=== PATIENT | female | born 1960 | race Caucasian/White ===

== ENCOUNTER 2016-08-27 04:57 | Day surgery (SDC) | payer BC ==
[2016-08-27 06:22] VITALS: BP 117/67
--- NOTE | 2016-08-27 11:22 | OR ---
DATE: 08/27/2016 PROCEDURE: Flexible sigmoidoscopy and multiple pinch biopsies. INSTRUMENT USED: CF-H180AL Olympus video colonoscope. PREMEDICATIONS: None. INDICATIONS: The patient with known ulcerative colitis on therapy with more of diarrhea, lower abdominal cramps, tenesmus, and rectal bleeding. Flexible sigmoidoscopic examination is done for assessment of severity and extent of ulcerative colitis and also biopsies to be obtained for CMV infection and endoscopic hemostasis therapy if needed. DESCRIPTION OF PROCEDURE: Initial rectal exam was unremarkable. Rigid anoscopy showed diffuse erythematous distal rectal mucosa with ulcerations and contact bleeding. The colonoscope was passed with ease. Photographs were taken of the rectum as well as sigmoid showing macroscopic features of ulcerative colitis. The scope was passed up to proximal sigmoid colon. No stricture. No vascular ectasia. No large isolated ulcerations seen. No polyp or tumor mass identified. Photographs were taken of the rectosigmoid area and numerous pinch biopsies were obtained and sent for histopathology. No bleeding was noted from any of the visualized areas at the completion of examination. IMPRESSION: Ulcerative colitis. The patient tolerated the procedure well. [facility] /[id number]
== END 2016-08-27 06:35 | disposition home or self-care (01) ==
LOC: DL.ENDO 04:57
PROVIDERS: ATTEND Internal Medicine Gastroenterology
DX: K52.9 Noninfective gastroenteritis and colitis, unspecified (principal); E66.9 Obesity, unspecified; E03.9 Hypothyroidism, unspecified
CPT/HCPCS: 88305

== ENCOUNTER 2019-06-29 06:32 | Day surgery (SDC) | payer BC ==
[~2019-06-29 06:32] MED LIST: Dextrose 5%-0.45% NaCl 1,000 ML IV SCH; Sodium Chloride 0.9% 10 ML Syringe FLUSH PRN
[2019-06-29] MEDS ORDERED: Propofol 1,000 MG/100 ML SDV IV ONE (06:33)
[2019-06-29] MEDS ORDERED: Lidocaine 1% 50 MG/5 ML Syringe ONE ×2 (06:33→06:40)
[2019-06-29] MEDS ORDERED: Sodium Chloride 0.9% 10 ML Syringe IV ONE (06:33)
[2019-06-29] MEDS ORDERED: propofoL 100 ML ONE (06:40)
[2019-06-29 12:07] VITALS: BP 113/75; PULSE 75
--- NOTE | 2019-06-29 16:01 | OR ---
DATE: 06/29/2019 PROCEDURES: Total colonoscopy and multiple pinch biopsies. INSTRUMENT USED: PCF-H190DL Olympus video colonoscope. PREMEDICATIONS: Provided by Anesthesiology Services. INDICATION: The patient with known ulcerative colitis, on therapy. Has had recent episodes of rectal bleeding as well as diarrhea. Colonoscopic examination is done for detection of any polypoid lesions and removal, evidence for mucosal healing to be determined, endoscopic hemostasis therapy if needed. DESCRIPTION OF PROCEDURE: Initial rectal exam was unremarkable. Rigid anoscopy showed small internal hemorrhoids without bleeding from them. Colonoscope was passed with ease. Numerous scattered diverticula were noted in the distal left colon along with deformity. The scope was passed with ease up to the ileocecal area. Photographs were taken of the normal-appearing cecum, identified by landmarks of appendiceal orifice and double-bulged ileocecal folds. No bleeding was noted from any of the visualized areas at the commencement of the examination. No stricture. No vascular ectasia. No large isolated ulcerations seen. No evidence of diffuse inflammatory bowel disease in the form of friability, contact bleeding, or ulcerations. No polyp or tumor mass identified. Probing the proximal sides of folds and flexures using adequate distention and clearing up the stool material, withdrawal of the scope was made. The bowel preparation was found to be adequate, [place] scale 2 in all the regions, total score 6. Multiple pinch biopsies were taken from the normal- appearing mucosa of the mid transverse colon, mid descending colon, and rectosigmoid, and sent for any histopathologic evidence of microscopic colitis. No bleeding was noted from any of the visualized areas at the completion of examination. IMPRESSION: 1. Internal hemorrhoids. 2. Diverticulosis. The patient tolerated the procedure well. [facility] /[id number]
== END 2019-06-29 10:35 | disposition home or self-care (01) ==
LOC: DL.ENDO 06:32
PROVIDERS: ATTEND Internal Medicine Gastroenterology
DX: K64.8 Other hemorrhoids (principal); K57.30 Diverticulosis of large intestine without perforation or abscess without bleeding; K51.90 Ulcerative colitis, unspecified, without complications; E03.9 Hypothyroidism, unspecified; E66.09 Other obesity due to excess calories; F41.9 Anxiety disorder, unspecified; F43.9 Reaction to severe stress, unspecified; Z68.41 Body mass index [BMI] 40.0-44.9, adult; Z88.8 Allergy status to other drugs, medicaments and biological substances
CPT/HCPCS: 45380; J2001; J2704; J7042

== ENCOUNTER 2019-11-27 05:27 | Day surgery (SDC) | payer BC ==
[2019-11-27 06:03] VITALS: BP 123/76; PULSE 98
--- NOTE | 2019-11-27 07:54 | OR ---
DATE: 11/27/2019 PROCEDURES: Flexible sigmoidoscopy and multiple pinch biopsies. INSTRUMENT USED: CF-CE331P Olympus video colonoscope. PREMEDICATIONS: None. INDICATION: The patient with known ulcerative colitis on therapy with more of rectal bleeding and diarrhea recently, not responsive to medical measures. Flexible sigmoidoscopic examination is done for detection of any polypoid lesions and removal, assessment as to status of ulcerative colitis, biopsies for any evidence of microscopic colitis, endoscopic hemostasis therapy if needed. DESCRIPTION OF PROCEDURE: Initial rectal exam was unremarkable. Rigid anoscopy showed rectal mucosa with diffuse erythema as well as some friability and contact bleeding. The colonoscope was passed with ease up to proximal sigmoid colon. Visualized rectosigmoid areas showed friable mucosa with contact bleeding as well as superficial ulcerations. No bleeding was noted from any of the visualized areas at the commencement of the examination. No stricture. No vascular ectasia. No large isolated ulcerations seen. No polyp or tumor mass identified. Multiple pinch biopsies were obtained from the sigmoid colon and rectum and sent for histopathology. No bleeding was noted from any of the visualized areas at the completion of examination. IMPRESSION: Ulcerative colitis. The patient tolerated the procedure well. [facility] /[id number]
== END 2019-11-27 06:55 | disposition home or self-care (01) ==
LOC: DL.SDS 05:27
PROVIDERS: ATTEND Internal Medicine Gastroenterology
DX: K51.90 Ulcerative colitis, unspecified, without complications (principal)

== ENCOUNTER 2020-01-11 11:35 | Inpatient (IN) | payer BC ==
[2020-01-11] MEDS ORDERED: Ondansetron 4 MG/2 ML SDV IVPUSH PRN (12:39)
[2020-01-11] MEDS ORDERED: Zolpidem 5 MG Tab PO PRN (12:39)
[2020-01-11 13:56] LABS: ANION GAP 13.9 mEq/L (7-13); CHLORIDE,CL 101 mmol/L (98-107); SODIUM,NA 138 mmol/L (136-145)
[2020-01-11] MEDS ORDERED: LORazepam 1 MG Tab PO PRN (15:08)
--- NOTE | 2020-01-11 15:14 | PCM.HP ---
H&P History of Present Illness - General Date of Service: 01/11/20 Admit Problem/Dx: Admission Diagnosis/Problem Admission Diagnosis/Problem Pneumonia Source of Information: Patient, Provider - History of Present Illness Initial Comments - Free Text/Narative: the patient is a 59-year-old lady with a history of ulcerative colitis, the patient is immunosuppressed due to active treatment of ulcerative colitis. The patient's daughter had upper respiratory tract infection symptoms and was diagnosed with Lopeno it. Week later the patient's and herself developed cough, fever, body ache, shortness of breath. She tested positive for the for Covid on 01 January. the patient's symptoms of fever, body ache actually improved.The other hand in the past few days prior to admission the patient was feeling increasingly short of breath. especially with activity. she checked her oxygen saturations and it was in the high 70s at home. she went to the primary care physician and was referred to the hospital for further evolution treatment. - Related Data Allergies/Adverse Reactions: Allergies Allergy/AdvReac Type Severity Reaction Status Date / Time azathioprine Allergy Liver Verified 11/27/19 05:54 Problems Home Medications: Home Meds Acetaminophen [Tylenol Extra Strength] 1 tab PO Q6HR PRN 03/24/15 [History] Levothyroxine 25 mcg PO ACBREAKFAST 03/24/15 [History] Calcium Carbonate/Vitamin D3 [Calcium 600 + Vit D Tablet] 1 tab PO BID 06/26/19 [History] Multivitamin [Multivitamins] 1 tab PO DAILY 06/26/19 [History] Tofacitinib Citrate [Xeljanz Xr] 11 mg PO DAILY 06/26/19 [History] Turmeric Root Extract [Turmeric] 1,500 mg PO BID 06/26/19 [History] LORazepam [Ativan] 1 mg PO BEDTIME PRN 01/11/20 [History] predniSONE [Prednisone] 25 mg PO DAILY 01/11/20 [History] Past Medical History HEENT History: Reports: Sinusitis, Other (See Below) Other HEENT History: SINUSITIS, CHRONIC. REFRACTIVE ERROR Cardiovascular History: Reports: None Respiratory History: Reports: None Gastrointestinal History: Reports: Chronic Diarrhea, Inflammatory Bowel Disease, Irritable Bowel Syndrome, Other (See Below) Other Gastrointestinal History: ULCERATIVE COLITIS Genitourinary History: Reports: None, Other (See Below) Other Genitourinary History: HX OF MENOMETRORRHAGIA, RENAL MASS [employer] TRAPPER History: Reports: Endometrial Ablation, Musculoskeletal History: Reports: Other (See Below) Other Musculoskeletal History: MEDIAL MENISCUS TEAR Neurological History: Reports: None Psychiatric History: Reports: None Endocrine/Metabolic History: Reports: Hypothyroidism, Obesity/BMI 30+ Hematologic History: Reports: None Immunologic History: Reports: None Oncologic (Cancer) History: Reports: None Dermatologic History: Reports: None - Infectious Disease History Infectious Disease History: Reports: Chicken Pox - Past Surgical History Head Surgeries/Procedures: Reports: None HEENT Surgical History: Reports: Naso-Sinus Surgery Cardiovascular Surgical History: Reports: None Respiratory Surgical History: Reports: None GI Surgical History: Reports: Cholecystectomy, Colonoscopy Female Surgical History: Reports: Breast Biopsy, Section, D&C, Endometrial Ablation, Hysterectomy, Salpingo-Oophorectomy Neurological Surgical History: Reports: None Musculoskeletal Surgical History: Reports: Knee Replacement, Other (See Below) Other Musculoskeletal Surgeries/Procedures:: bilateral partial knee replacement Dermatological Surgical History: Reports: None Social & Family History - Family History Family Medical History: Noncontributory - Tobacco Use Tobacco Use Status *Q: Never Tobacco User Second Hand Smoke Exposure: No - Caffeine Use Caffeine Use: Reports: None - Recreational Drug Use Recreational Drug Use: No H&P Review of Systems - Review of Systems: Review Of Systems: See Below General: Reports: Fever, Chills, Malaise Pulmonary: Reports: Shortness of Breath. Denies: Hemoptysis Cardiovascular: Denies: Chest Pain, Edema Gastrointestinal: Reports: Diarrhea Genitourinary: Denies: Dysuria Psychiatric: Denies: Confusion Exam - Exam Exam: See Below - Vital Signs Vital Signs: Last Vital Signs Temp 98.6 F 01/11/20 12:53 Pulse 98 01/11/20 12:53 Resp 18 01/11/20 12:53 BP 109/69 01/11/20 12:53 Pulse Ox 92 L 01/11/20 12:53 Weight: 220 lb - Exam Quality Assessment: Supplemental Oxygen General: Alert, Oriented Neck: Supple Lungs: Normal Respiratory Effort, Decreased Breath Sounds, Rhonchi Cardiovascular: Regular Rate, Regular Rhythm GI/Abdominal Exam: Normal Bowel Sounds, Soft, Non-Tender Extremities: No Pedal Edema - Patient Data Lab Results Last 24 hrs: Laboratory Results - last 24 hr 01/11/20 01/11/20 01/11/20 Range/Units 13:23 13:23 13:23 WBC 6.5 (5.0-10.0) 10^3/uL RBC 4.41 (4.2-5.4) 10^6/uL Hgb 12.9 D (12.0-16.0) g/dL Hct 39.9 (37.0-47.0) % MCV 90.5 D (80-100) fL MCH 29.3 (27.0-34.0) pg MCHC 32.3 L (33.0-35.0) g/dL Plt Count 248 D (150-450) 10^3/uL Neut % (Auto) 87.8 H (42.2-75.2) % Lymph % (Auto) 9.0 L (20.5-50.1) % [place] % (Auto) 3.2 (2-8) % Eos % (Auto) 0.0 L (1.0-3.0) % Baso % (Auto) 0.0 (0.0-1.0) % PT (9.0-12.0) SEC INR (0.9-1.2) D-Dimer, Quantitative 262 (0-400) ng/mL Sodium (136-145) mmol/L Potassium (3.5-5.1) mmol/L Chloride (98-107) mmol/L Carbon Dioxide (21-32) mmol/L Anion Gap (7-13) mEq/L BUN (7-18) mg/dL Creatinine (0.55-1.02) mg/dL Est Cr Clr Drug Dosing mL/min Estimated GFR (MDRD) Glucose (74-99) mg/dL Lactic Acid (0.4-2.0) mmol/L Calcium (8.5-10.1) mg/dL Ferritin 244 (8-252) mg/mL Total Bilirubin (0.2-1.0) mg/dL Direct Bilirubin (0.0-0.2) mg/dL Indirect Bilirubin AST (15-37) U/L ALT (14-59) U/L Alkaline Phosphatase (46-116) U/L Lactate Dehydrogenase (81-234) U/L C-Reactive Protein (0.0-0.9) mg/dL Total Protein (6.4-8.2) g/dL Albumin (3.4-5.0) g/dL Globulin Albumin/Globulin Ratio 01/11/20 01/11/20 01/11/20 Range/Units 13:23 13:23 13:23 WBC (5.0-10.0) 10^3/uL RBC (4.2-5.4) 10^6/uL Hgb (12.0-16.0) g/dL Hct (37.0-47.0) % MCV (80-100) fL MCH (27.0-34.0) pg MCHC (33.0-35.0) g/dL Plt Count (150-450) 10^3/uL Neut % (Auto) (42.2-75.2) % Lymph % (Auto) (20.5-50.1) % [place] % (Auto) (2-8) % Eos % (Auto) (1.0-3.0) % Baso % (Auto) (0.0-1.0) % PT 9.6 (9.0-12.0) SEC INR 1.0 (0.9-1.2) D-Dimer, Quantitative (0-400) ng/mL Sodium 138 (136-145) mmol/L Potassium 3.9 (3.5-5.1) mmol/L Chloride 101 (98-107) mmol/L Carbon Dioxide 27 (21-32) mmol/L Anion Gap 13.9 H (7-13) mEq/L BUN 13 (7-18) mg/dL Creatinine 0.83 (0.55-1.02) mg/dL Est Cr Clr Drug Dosing 64.58 mL/min Estimated GFR (MDRD) > 60 Glucose 128 H (74-99) mg/dL Lactic Acid 1.1 (0.4-2.0) mmol/L Calcium 9.5 (8.5-10.1) mg/dL Ferritin (8-252) mg/mL Total Bilirubin 0.3 (0.2-1.0) mg/dL Direct Bilirubin 0.1 (0.0-0.2) mg/dL Indirect Bilirubin 0.2 AST 29 (15-37) U/L ALT 33 (14-59) U/L Alkaline Phosphatase 99 (46-116) U/L Lactate Dehydrogenase 244 H (81-234) U/L C-Reactive Protein 11.8 H (0.0-0.9) mg/dL Total Protein 7.4 (6.4-8.2) g/dL Albumin 3.1 L (3.4-5.0) g/dL Globulin 4.3 Albumin/Globulin Ratio 0.72 Result Diagrams: 01/11/20 13:23 01/11/20 13:23 - Problem List (1) Acute hypoxemic respiratory failure due to COVID-19 SNOMED Code(s): 744378278 ICD Code: U07.1 - COVID-19; J96.01 - ACUTE RESPIRATORY FAILURE WITH HYPOXIA Status: Acute Current Visit: Yes (2) Pneumonia due to COVID-19 virus SNOMED Code(s): 623894124065387727 ICD Code: U07.1 - COVID-19; J12.89 - OTHER VIRAL PNEUMONIA Status: Acute Current Visit: Yes (3) Ulcerative colitis SNOMED Code(s): 80250254 ICD Code: K51.90 - ULCERATIVE COLITIS, UNSPECIFIED, WITHOUT COMPLICATIONS Status: Acute Current Visit: No Problem List Initiated/Reviewed/Updated: Yes Orders Last 24hrs: Active Orders 24 hr Category Date Time Status Patient Status [ADT] Routine ADT 01/11/20 12:39 Active Oxygen Therapy [RC] PRN Care 01/11/20 12:39 Active Peripheral IV Care [RC] Care 01/11/20 12:40 Active Up With Assistance [RC] ASDIRECTED Care 01/11/20 12:39 Active VTE/DVT Education [RC] Care 01/11/20 12:39 Active Vital Signs [RC] 00,04,08,12,16,20,00 Care 01/11/20 12:39 Active Regular Diet [DIET] Diet 01/11/20 Dinner Active Chest 1V Frontal [CR] Routine Exams 01/11/20 14:38 Ordered BASIC METABOLIC PANEL,BMP [CHEM] AM Lab 01/12/20 05:11 Ordered BASIC METABOLIC PANEL,BMP [CHEM] AM Lab 01/13/20 05:11 Ordered BASIC METABOLIC PANEL,BMP [CHEM] AM Lab 01/14/20 05:11 Ordered BASIC METABOLIC PANEL,BMP [CHEM] AM Lab 01/15/20 05:11 Ordered BASIC METABOLIC PANEL,BMP [CHEM] AM Lab 01/16/20 05:11 Ordered C-REACTIVE PROTEIN [CHEM] AM Lab 01/12/20 05:11 Ordered C-REACTIVE PROTEIN [CHEM] AM Lab 01/13/20 05:11 Ordered C-REACTIVE PROTEIN [CHEM] AM Lab 01/14/20 05:11 Ordered C-REACTIVE PROTEIN [CHEM] AM Lab 01/15/20 05:11 Ordered C-REACTIVE PROTEIN [CHEM] AM Lab 01/16/20 05:11 Ordered CBC WITH AUTO DIFF [HEME] AM Lab 01/12/20 05:11 Ordered CBC WITH AUTO DIFF [HEME] AM Lab 01/13/20 05:11 Ordered CBC WITH AUTO DIFF [HEME] AM Lab 01/14/20 05:11 Ordered CBC WITH AUTO DIFF [HEME] AM Lab 01/15/20 05:11 Ordered CBC WITH AUTO DIFF [HEME] AM Lab 01/16/20 05:11 Ordered CULTURE BLOOD [BC] Stat Lab 01/11/20 13:23 Received CULTURE SPUTUM + SMEAR [RM] Routine Lab 01/11/20 12:41 Ordered D-DIMER QUANTITATIVE [COAG] AM Lab 01/12/20 05:11 Ordered D-DIMER QUANTITATIVE [COAG] AM Lab 01/13/20 05:11 Ordered D-DIMER QUANTITATIVE [COAG] AM Lab 01/14/20 05:11 Ordered D-DIMER QUANTITATIVE [COAG] AM Lab 01/15/20 05:11 Ordered D-DIMER QUANTITATIVE [COAG] AM Lab 01/16/20 05:11 Ordered FERRITIN [CHEM] AM Lab 01/12/20 05:11 Ordered FERRITIN [CHEM] AM Lab 01/13/20 05:11 Ordered FERRITIN [CHEM] AM Lab 01/14/20 05:11 Ordered FERRITIN [CHEM] AM Lab 01/15/20 05:11 Ordered FERRITIN [CHEM] AM Lab 01/16/20 05:11 Ordered HEPATIC FUNCTION PANEL,HFP [CHEM] AM Lab 01/12/20 05:11 Ordered HEPATIC FUNCTION PANEL,HFP [CHEM] AM Lab 01/13/20 05:11 Ordered HEPATIC FUNCTION PANEL,HFP [CHEM] AM Lab 01/14/20 05:11 Ordered HEPATIC FUNCTION PANEL,HFP [CHEM] AM Lab 01/15/20 05:11 Ordered HEPATIC FUNCTION PANEL,HFP [CHEM] AM Lab 01/16/20 05:11 Ordered PROCALCITONIN [REF] DAILY Lab 01/12/20 05:00 Ordered PROCALCITONIN [REF] DAILY Lab 01/13/20 05:00 Ordered PROCALCITONIN [REF] DAILY Lab 01/14/20 05:00 Ordered PROCALCITONIN [REF] DAILY Lab 01/15/20 05:00 Ordered PROCALCITONIN [REF] DAILY Lab 01/16/20 05:00 Ordered PROCALCITONIN [REF] Stat Lab 01/11/20 13:23 Received Acetaminophen [TylenoL] Med 01/11/20 12:39 Active 650 mg PO Q4H PRN Acetaminophen/HYDROcodone [[place] 325-10 MG] Med 01/11/20 12:39 Active 1 tab PO Q4H PRN Calcium Carbonate/Vitamin D3 [Calcium 600 + Vit D Med 01/11/20 21:00 Ordered Tablet] 1 tab PO BID Enoxaparin [Lovenox] Med 01/12/20 09:00 Active 40 mg SUBCUT DAILY LORazepam [Ativan] Med 01/11/20 15:08 Ordered 1 mg PO BEDTIME PRN Levothyroxine Med 01/12/20 06:00 Ordered 25 mcg PO ACBREAKFAST Multivitamin [Multivitamins] Med 01/12/20 09:00 Ordered 1 tab PO DAILY Ondansetron [Zofran ODT] Med 01/11/20 12:39 Active 4 mg PO Q6H PRN Ondansetron [Zofran] Med 01/11/20 12:39 Active 4 mg IVPUSH Q6H PRN Remdesivir (Eua) [Remdesivir (EUA)] 100 mg Med 01/12/20 09:00 Ordered Sodium Chloride 0.9% [Normal Saline] 230 ml IV Q24H Remdesivir (Eua) [Remdesivir (EUA)] 200 mg Med 01/11/20 15:03 Ordered Sodium Chloride 0.9% [Normal Saline] 210 ml IV ONETIME Sodium Chloride 0.9% [Saline Flush] Med 01/11/20 12:39 Active 10 ml FLUSH ASDIRECTED PRN Zolpidem [Ambien] Med 01/11/20 12:39 Active 5 mg PO BEDTIME PRN dexAMETHasone Med 01/12/20 09:00 Active 6 mg PO DAILY predniSONE Med 01/12/20 09:00 Ordered 25 mg PO DAILY Isolation [COMM] Stat Oth 01/11/20 12:41 Active Peripheral IV Insertion Adult [OM.PC] Routine Oth 01/11/20 12:39 Ordered Saline Lock Insert [OM.PC] Routine Oth 01/11/20 12:39 Ordered Resuscitation Status Routine Resus Stat 01/11/20 12:39 Ordered Medication Orders Acetaminophen (Tylenol) 650 mg PO Q4H PRN PRN Reason: Pain (Mild 1-3)/fever Hydrocodone Bitart/Acetaminophen ([place] 325-10 Mg) 1 tab PO Q4H PRN PRN Reason: Pain (moderate 4-6) Dexamethasone (Dexamethasone) 6 mg PO DAILY JCARLOS Stop: 01/21/20 09:01 Enoxaparin Sodium (Lovenox) 40 mg SUBCUT DAILY JCARLOS Remdesivir 200 mg/ Sodium (Chloride) 210 mls @ 210 mls/hr IV ONETIME ONE Stop: 01/11/20 15:04 Remdesivir 100 mg/ Sodium (Chloride) 230 mls @ 230 mls/hr IV Q24H JCARLOS Stop: 01/15/20 09:01 Ondansetron HCl (Zofran Odt) 4 mg PO Q6H PRN PRN Reason: nausea, able to take PO Ondansetron HCl (Zofran) 4 mg IVPUSH Q6H PRN PRN Reason: Nausea/Vomiting Sodium Chloride (Saline Flush) 10 ml FLUSH ASDIRECTED PRN PRN Reason: Keep Vein Open Zolpidem Tartrate (Ambien) 5 mg PO BEDTIME PRN PRN Reason: Sleep Assessment/Plan Comment:: presented with increasing shortness of breath and hypoxemia Acute hypoxemic respiratory failure secondary to Covid 19 pneumonia Supplement oxygen as needed Covid 19 pneumonia symptoms started on December Positive covid 19 screen on 01 January GI and pulmonary symptoms, fever, chills, cough, More sob 01/07- at home associated with hypoxemia 77% on RA 01/10 in clinic LFT, Renal fx. Is good treat with Remdesivir 01/06- (discussed with PT risks and emergency FDA approved status) (hypoxemia, immunosuppressed) Continue prednisone (on it for Ulcerative colitis) Plasma : no ( far out from initial symptoms) evaluate for concurrent bacterial infections Follow pro-calcitonin levels In the meantime hold Abx Ddimer is low DVT prophylaxis SQ Lovenox daily Ulcerative colitis Cont prednisone Hold tofacitinib
--- NOTE | 2020-01-11 15:35 | CR ---
EXAMINATION: Chest 1V Frontal SEX: Female AGE: 59 years CLINICAL HISTORY: 59-year-old hospitalized female patient with shortness of breath. INTERPRETATION: Abnormal. 1. *Generally poor inspiratory effort, obese female with patchy consolidation both lung bases and lingular segment JAYSON. Pneumonia suspected and close clinical correlation requested. Covid test? 2. Normal cardiac silhouette without cephalization of vascular flow, alveolar edema or dependent effusion. 3. No lung mass or hilar lymphadenopathy. 4. No pneumothorax or pneumomediastinum. Midline tracheal bronchial airway unremarkable. CONCLUSION:
[2020-01-11] MEDS: Acetaminophen 325 MG Tab PO PRN ×2 (16:27→22:23)
[2020-01-11] MEDS: LORazepam 1 MG Tab PO PRN ×2 (16:27→22:18)
[2020-01-11] MEDS: Sodium Chloride 0.9% 10 ML Syringe FLUSH PRN (16:28)
[2020-01-11] MEDS: Sodium Chloride 0.9% 10 ML Syringe IV SCH (18:03)
[2020-01-11] MEDS: Formoterol/Mometasone 200-5 MCG 8.8 GM Inhaler IH SCH (18:04)
[2020-01-11] MEDS: Calcium Carbonate/Vitamin D3 1250 MG-200 Unit Tab PO SCH (22:18)
[2020-01-12] MEDS: Albuterol 6.7 GM Inhaler INH PRN (04:35)
[2020-01-12] MEDS: Levothyroxine 25 MCG Tab PO SCH (06:20)
[2020-01-12] MEDS: Formoterol/Mometasone 200-5 MCG 8.8 GM Inhaler IH SCH ×2 (06:44→18:25)
[2020-01-12 07:23] LABS: ANION GAP 11.9 mEq/L (7-13); CHLORIDE,CL 104 mmol/L (98-107); SODIUM,NA 142 mmol/L (136-145)
[2020-01-12] MEDS: Enoxaparin 40 MG/0.4 ML Syringe SUBCUT SCH (08:10)
[2020-01-12] MEDS: predniSONE 10 MG Tab PO SCH (08:11)
[2020-01-12] MEDS: Multivitamins,Therapeutic Tab PO SCH (08:11)
[2020-01-12] MEDS ORDERED: Dexamethasone 2 MG Tab PO SCH (09:00)
[2020-01-12] MEDS: Acetaminophen 325 MG Tab PO PRN (09:28)
[2020-01-12] MEDS: LORazepam 1 MG Tab PO PRN ×2 (09:28→16:01)
[2020-01-12] MEDS: Ondansetron 4 MG Tab.DIS PO PRN (09:33)
[2020-01-12] MEDS: Calcium Carbonate/Vitamin D3 1250 MG-200 Unit Tab PO SCH ×2 (13:20→20:22)
--- NOTE | 2020-01-12 15:54 | PCM.PN ---
- General Info Date of Service: 01/12/20 Admission Dx/Problem (Free Text): Admission Diagnosis/Problem Admission Diagnosis/Problem Pneumonia Subjective Update: continues to have cough and hypoxemia with minimal activity. Symptoms started prior to admission. Oxygen is better with supplement. Has cough, no sputum no fever or chills. No diarrhea. - Patient Data Vitals - Most Recent: Last Vital Signs Temp 99 F 01/12/20 12:00 Pulse 110 H 01/12/20 12:00 Resp 20 01/12/20 12:00 BP 107/62 01/12/20 12:00 Pulse Ox 91 L 01/12/20 12:00 Weight - Most Recent: 220 lb I&O - Last 24 Hours: Intake & Output 01/12/20 01/12/20 01/12/20 06:59 14:59 22:59 Intake Total 320 Balance 320 Lab Results Last 24 Hours: Laboratory Results - last 24 hr 01/11/20 01/12/20 01/12/20 Range/Units 13:23 06:25 06:25 WBC 5.2 (5.0-10.0) 10^3/uL RBC 4.01 L (4.2-5.4) 10^6/uL Hgb 11.7 L (12.0-16.0) g/dL Hct 36.7 L (37.0-47.0) % MCV 91.5 (80-100) fL MCH 29.2 (27.0-34.0) pg MCHC 31.9 L (33.0-35.0) g/dL Plt Count 237 (150-450) 10^3/uL Neut % (Auto) 73.9 (42.2-75.2) % Lymph % (Auto) 21.5 (20.5-50.1) % Coleman % (Auto) 4.2 (2-8) % Eos % (Auto) 0.2 L (1.0-3.0) % Baso % (Auto) 0.2 (0.0-1.0) % Add Manual Diff Yes Neutrophils % (Manual) 74 (42-75) % Band Neutrophils % 3 % Lymphocytes % (Manual) 20 (20-50) % Monocytes % (Manual) 3 (2-8) % Hypochromasia 1+ slight D-Dimer, Quantitative 217 (0-400) ng/mL Sodium (136-145) mmol/L Potassium (3.5-5.1) mmol/L Chloride (98-107) mmol/L Carbon Dioxide (21-32) mmol/L Anion Gap (7-13) mEq/L BUN (7-18) mg/dL Creatinine (0.55-1.02) mg/dL Est Cr Clr Drug Dosing mL/min Estimated GFR (MDRD) Glucose (74-99) mg/dL Calcium (8.5-10.1) mg/dL Ferritin (8-252) mg/mL Total Bilirubin (0.2-1.0) mg/dL Direct Bilirubin (0.0-0.2) mg/dL Indirect Bilirubin AST (15-37) U/L ALT (14-59) U/L Alkaline Phosphatase (46-116) U/L C-Reactive Protein (0.0-0.9) mg/dL Total Protein (6.4-8.2) g/dL Albumin (3.4-5.0) g/dL Globulin Albumin/Globulin Ratio Procalcitonin <0.05 (<0.10) ng/mL 01/12/20 01/12/20 Range/Units 06:25 06:25 WBC (5.0-10.0) 10^3/uL RBC (4.2-5.4) 10^6/uL Hgb (12.0-16.0) g/dL Hct (37.0-47.0) % MCV (80-100) fL MCH (27.0-34.0) pg MCHC (33.0-35.0) g/dL Plt Count (150-450) 10^3/uL Neut % (Auto) (42.2-75.2) % Lymph % (Auto) (20.5-50.1) % Coleman % (Auto) (2-8) % Eos % (Auto) (1.0-3.0) % Baso % (Auto) (0.0-1.0) % Add Manual Diff Neutrophils % (Manual) (42-75) % Band Neutrophils % % Lymphocytes % (Manual) (20-50) % Monocytes % (Manual) (2-8) % Hypochromasia D-Dimer, Quantitative (0-400) ng/mL Sodium 142 (136-145) mmol/L Potassium 3.9 (3.5-5.1) mmol/L Chloride 104 (98-107) mmol/L Carbon Dioxide 30 (21-32) mmol/L Anion Gap 11.9 (7-13) mEq/L BUN 16 (7-18) mg/dL Creatinine 0.77 (0.55-1.02) mg/dL Est Cr Clr Drug Dosing 69.61 mL/min Estimated GFR (MDRD) > 60 Glucose 84 (74-99) mg/dL Calcium 9.4 (8.5-10.1) mg/dL Ferritin 228 (8-252) mg/mL Total Bilirubin 0.4 (0.2-1.0) mg/dL Direct Bilirubin 0.1 (0.0-0.2) mg/dL Indirect Bilirubin 0.3 AST 23 (15-37) U/L ALT 28 (14-59) U/L Alkaline Phosphatase 84 (46-116) U/L C-Reactive Protein 15.9 H (0.0-0.9) mg/dL Total Protein 6.6 (6.4-8.2) g/dL Albumin 2.7 L (3.4-5.0) g/dL Globulin 3.9 Albumin/Globulin Ratio 0.69 Procalcitonin (<0.10) ng/mL Lukas Results Last 24 Hours: Microbiology 01/11/20 13:23 Aerobic Blood Culture - Preliminary Blood - Arm, Right NO GROWTH AFTER 1 DAY Anaerobic Blood Culture - Preliminary NO GROWTH AFTER 1 DAY Med Orders - Current: Current Medications Acetaminophen (Tylenol) 650 mg PO Q4H PRN PRN Reason: Pain (Mild 1-3)/fever Last Admin: 01/12/20 09:28 Dose: 650 mg Documented by: Hydrocodone Bitart/Acetaminophen ([place] 325-10 Mg) 1 tab PO Q4H PRN PRN Reason: Pain (moderate 4-6) Albuterol (Proventil Hfa) 0 gm INH Q4HR PRN PRN Reason: Wheezing Last Admin: 01/12/20 04:35 Dose: 2 puff Documented by: Calcium Carbonate (Calcium Carbonate/Vitamin D 1250 Mg-200 Unit) 1 tab PO BID@1200,2100 [facility] Last Admin: 01/12/20 13:20 Dose: 1 tab Documented by: Enoxaparin Sodium (Lovenox) 40 mg SUBCUT DAILY [facility] Last Admin: 01/12/20 08:10 Dose: 40 mg Documented by: Remdesivir 100 mg/ Sodium (Chloride) 230 mls @ 230 mls/hr IV Q24H [facility] Stop: 01/15/20 16:59 Levothyroxine Sodium (Levothyroxine) 25 mcg PO ACBREAKFAST [facility] Last Admin: 01/12/20 06:20 Dose: 25 mcg Documented by: Lorazepam (Ativan) 1 mg PO Q6HR PRN PRN Reason: anxiety Last Admin: 01/12/20 09:28 Dose: 1 mg Documented by: Mometasone Furoate/Formoterol Fumar (Dulera 200-5 Mcg) 2 puff IH BIDRT [facility] Last Admin: 01/12/20 06:44 Dose: 2 puff Documented by: Multivitamins (Thera) 1 each PO DAILY [facility] Last Admin: 01/12/20 08:11 Dose: 1 each Documented by: Ondansetron HCl (Zofran Odt) 4 mg PO Q6H PRN PRN Reason: nausea, able to take PO Last Admin: 01/12/20 09:33 Dose: 4 mg Documented by: Ondansetron HCl (Zofran) 4 mg IVPUSH Q6H PRN PRN Reason: Nausea/Vomiting Prednisone (Prednisone) 25 mg PO DAILY@0800 [facility] Last Admin: 01/12/20 08:11 Dose: 25 mg Documented by: Sodium Chloride (Saline Flush) 10 ml FLUSH ASDIRECTED PRN PRN Reason: Keep Vein Open Last Admin: 01/11/20 16:28 Dose: 10 ml Documented by: Sodium Chloride (Saline Flush) 30 ml IV DAILY@1700 [facility] Stop: 01/15/20 17:01 Last Admin: 01/11/20 18:03 Dose: 30 ml Documented by: Zolpidem Tartrate (Ambien) 5 mg PO BEDTIME PRN PRN Reason: Sleep Discontinued Medications Dexamethasone (Dexamethasone) 6 mg PO DAILY [facility] Stop: 01/21/20 09:01 Remdesivir 200 mg/ Sodium (Chloride) 210 mls @ 210 mls/hr IV ONETIME ONE Stop: 01/11/20 16:59 Last Infusion: 01/11/20 18:04 Dose: Infused Documented by: Lorazepam (Ativan) 1 mg PO BEDTIME PRN PRN Reason: anxiety - Exam Quality Assessment: Supplemental Oxygen General: Alert, Oriented Lungs: Normal Respiratory Effort, Decreased Breath Sounds Cardiovascular: Regular Rate, Regular Rhythm GI/Abdominal Exam: Normal Bowel Sounds, Soft, Non-Tender Extremities: No Pedal Edema Sepsis Event Note - Evaluation Sepsis Screening Result: Sepsis Risk - Focused Exam Vital Signs: Vital Signs Temp Pulse Resp BP Pulse Ox 01/12/20 12:00 99 F 110 H 20 107/62 91 L 01/12/20 09:30 100 F 01/12/20 08:00 99.1 F 111 H 22 H 131/70 90 L 01/12/20 04:00 99.2 F 96 24 H 115/57 L 92 L - Problem List & Annotations (1) Acute hypoxemic respiratory failure due to COVID-19 SNOMED Code(s): 939172026 Code(s): U07.1 - COVID-19; J96.01 - ACUTE RESPIRATORY FAILURE WITH HYPOXIA Status: Acute Current Visit: Yes (2) Pneumonia due to COVID-19 virus SNOMED Code(s): 667634876682314681 Code(s): U07.1 - COVID-19; J12.89 - OTHER VIRAL PNEUMONIA Status: Acute Current Visit: Yes (3) Ulcerative colitis SNOMED Code(s): 30432529 Code(s): K51.90 - ULCERATIVE COLITIS, UNSPECIFIED, WITHOUT COMPLICATIONS Status: Acute Current Visit: No - Problem List Review Problem List Initiated/Reviewed/Updated: Yes - My Orders Last 24 Hours: My Active Orders 01/11/20 15:15 RT Post Treatment Assessment [RC] Click to Edit RT Pre-Treatment Assessment [RC] Click to Edit Albuterol [Proventil HFA] 0 gm INH Q4HR PRN 01/11/20 15:55 LORazepam [Ativan] 1 mg PO Q6HR PRN 01/11/20 17:00 Sodium Chloride 0.9% [Saline Flush] 30 ml IV DAILY@1700 01/11/20 Dinner Regular Diet [DIET] 01/11/20 18:00 Mometasone/Formoterol [Dulera 200-5 MCG] 2 puff IH BIDRT 01/11/20 21:00 Calcium Carbonate/Vitamin D3 [Calcium Carbonate/Vitamin D 1250 MG-200 Unit] 1 tab PO BID@1200,2100 01/12/20 06:00 Levothyroxine 25 mcg PO ACBREAKFAST 01/12/20 06:25 PROCALCITONIN [REF] DAILY 01/12/20 08:00 predniSONE 25 mg PO DAILY@0800 01/12/20 09:00 Enoxaparin [Lovenox] 40 mg SUBCUT DAILY Multivitamins,Therapeutic [Thera] 1 each PO DAILY 01/12/20 16:00 Remdesivir (Eua) [Remdesivir (EUA)] 100 mg Sodium Chloride 0.9% [Normal Saline] 230 ml IV Q24H 01/13/20 05:00 PROCALCITONIN [REF] DAILY 01/13/20 05:11 BASIC METABOLIC PANEL,BMP [CHEM] AM C-REACTIVE PROTEIN [CHEM] AM CBC WITH AUTO DIFF [HEME] AM D-DIMER QUANTITATIVE [COAG] AM FERRITIN [CHEM] AM HEPATIC FUNCTION PANEL,HFP [CHEM] AM 01/14/20 05:00 PROCALCITONIN [REF] DAILY 01/14/20 05:11 BASIC METABOLIC PANEL,BMP [CHEM] AM C-REACTIVE PROTEIN [CHEM] AM CBC WITH AUTO DIFF [HEME] AM D-DIMER QUANTITATIVE [COAG] AM FERRITIN [CHEM] AM HEPATIC FUNCTION PANEL,HFP [CHEM] AM 01/15/20 05:00 PROCALCITONIN [REF] DAILY 01/15/20 05:11 BASIC METABOLIC PANEL,BMP [CHEM] AM C-REACTIVE PROTEIN [CHEM] AM CBC WITH AUTO DIFF [HEME] AM D-DIMER QUANTITATIVE [COAG] AM FERRITIN [CHEM] AM HEPATIC FUNCTION PANEL,HFP [CHEM] AM 01/16/20 05:00 PROCALCITONIN [REF] DAILY 01/16/20 05:11 BASIC METABOLIC PANEL,BMP [CHEM] AM C-REACTIVE PROTEIN [CHEM] AM CBC WITH AUTO DIFF [HEME] AM D-DIMER QUANTITATIVE [COAG] AM FERRITIN [CHEM] AM HEPATIC FUNCTION PANEL,HFP [CHEM] AM - Plan Plan:: presented with increasing shortness of breath and hypoxemia Acute hypoxemic respiratory failure secondary to Covid 19 pneumonia Supplement oxygen as needed Covid 19 pneumonia symptoms started on December Positive covid 19 screen on 01 January GI and pulmonary symptoms, fever, chills, cough, More sob 01/07-01/10 at home associated with hypoxemia 77% on RA 01/10 in clinic LFT, Renal fx. Is good treat with Remdesivir 01/06- (re hypoxemia, immunosuppressed) Continue prednisone (on it for Ulcerative colitis) Plasma : no ( far out from initial symptoms) evaluate for concurrent bacterial infections low pro-calcitonin levels In the meantime hold Abx Ddimer is low - DVT prophylaxis SQ Lovenox daily Ulcerative colitis Cont prednisone Hold tofacitinib
[2020-01-12] MEDS: Sodium Chloride 0.9% 10 ML Syringe IV SCH (17:15)
[2020-01-12] MEDS: Acetaminophen/HYDROcodone 325-10 MG Tab PO PRN (18:25)
[2020-01-13] MEDS: Levothyroxine 25 MCG Tab PO SCH (06:01)
[2020-01-13] MEDS: Formoterol/Mometasone 200-5 MCG 8.8 GM Inhaler IH SCH ×2 (06:04→18:34)
[2020-01-13] MEDS: Albuterol 6.7 GM Inhaler INH PRN ×2 (06:08→10:21)
[2020-01-13] MEDS: LORazepam 1 MG Tab PO PRN ×3 (06:17→18:30)
[2020-01-13 07:01] LABS: ANION GAP 10.9 mEq/L (7-13); CHLORIDE,CL 104 mmol/L (98-107); SODIUM,NA 142 mmol/L (136-145)
[2020-01-13] MEDS: Multivitamins,Therapeutic Tab PO SCH (08:14)
[2020-01-13] MEDS: Enoxaparin 40 MG/0.4 ML Syringe SUBCUT SCH (08:14)
[2020-01-13] MEDS: predniSONE 10 MG Tab PO SCH (08:14)
[2020-01-13] MEDS: Acetaminophen 325 MG Tab PO PRN (09:23)
[2020-01-13] MEDS: Calcium Carbonate/Vitamin D3 1250 MG-200 Unit Tab PO SCH ×3 (12:16→22:15)
--- NOTE | 2020-01-13 13:11 | PCM.PN ---
- General Info Date of Service: 01/13/20 Admission Dx/Problem (Free Text): Admission Diagnosis/Problem Admission Diagnosis/Problem Pneumonia Subjective Update: continues to have cough and hypoxemia with minimal activity. Symptoms started prior to admission. needs fairly high oxygen supplement with activities Has cough, no sputum no fever or chills. No diarrhea. Functional Status: Reports: Pain Controlled, Tolerating Diet, Ambulating - Review of Systems General: Denies: Fever Pulmonary: Reports: Shortness of Breath Cardiovascular: Denies: Chest Pain, Edema Gastrointestinal: Denies: Abdominal Pain Neurological: Denies: Confusion - Patient Data Vitals - Most Recent: Last Vital Signs Temp 99.0 F 01/13/20 12:00 Pulse 84 01/13/20 12:00 Resp 20 01/13/20 12:00 BP 110/57 L 01/13/20 12:00 Pulse Ox 92 L 01/13/20 12:00 Weight - Most Recent: 220 lb I&O - Last 24 Hours: Intake & Output 01/12/20 01/13/20 01/13/20 22:59 06:59 14:59 Intake Total 240 Balance 240 Lab Results Last 24 Hours: Laboratory Results - last 24 hr 01/12/20 01/13/20 01/13/20 Range/Units 06:25 06:17 06:17 WBC 3.5 L (5.0-10.0) 10^3/uL RBC 4.02 L (4.2-5.4) 10^6/uL Hgb 11.7 L (12.0-16.0) g/dL Hct 36.9 L (37.0-47.0) % MCV 91.8 (80-100) fL MCH 29.1 (27.0-34.0) pg MCHC 31.7 L (33.0-35.0) g/dL Plt Count 273 (150-450) 10^3/uL Neut % (Auto) 51.6 (42.2-75.2) % Lymph % (Auto) 39.3 (20.5-50.1) % Ada % (Auto) 8.8 H (2-8) % Eos % (Auto) 0.3 L (1.0-3.0) % Baso % (Auto) 0.0 (0.0-1.0) % D-Dimer, Quantitative 358 (0-400) ng/mL Sodium (136-145) mmol/L Potassium (3.5-5.1) mmol/L Chloride (98-107) mmol/L Carbon Dioxide (21-32) mmol/L Anion Gap (7-13) mEq/L BUN (7-18) mg/dL Creatinine (0.55-1.02) mg/dL Est Cr Clr Drug Dosing mL/min Estimated GFR (MDRD) Glucose (74-99) mg/dL Calcium (8.5-10.1) mg/dL Ferritin (8-252) mg/mL Total Bilirubin (0.2-1.0) mg/dL Direct Bilirubin (0.0-0.2) mg/dL Indirect Bilirubin AST (15-37) U/L ALT (14-59) U/L Alkaline Phosphatase (46-116) U/L C-Reactive Protein (0.0-0.9) mg/dL Total Protein (6.4-8.2) g/dL Albumin (3.4-5.0) g/dL Globulin Albumin/Globulin Ratio Procalcitonin <0.05 (<0.10) ng/mL 01/13/20 01/13/20 Range/Units 06:17 06:17 WBC (5.0-10.0) 10^3/uL RBC (4.2-5.4) 10^6/uL Hgb (12.0-16.0) g/dL Hct (37.0-47.0) % MCV (80-100) fL MCH (27.0-34.0) pg MCHC (33.0-35.0) g/dL Plt Count (150-450) 10^3/uL Neut % (Auto) (42.2-75.2) % Lymph % (Auto) (20.5-50.1) % Ada % (Auto) (2-8) % Eos % (Auto) (1.0-3.0) % Baso % (Auto) (0.0-1.0) % D-Dimer, Quantitative (0-400) ng/mL Sodium 142 (136-145) mmol/L Potassium 3.9 (3.5-5.1) mmol/L Chloride 104 (98-107) mmol/L Carbon Dioxide 31 (21-32) mmol/L Anion Gap 10.9 (7-13) mEq/L BUN 19 H (7-18) mg/dL Creatinine 0.81 (0.55-1.02) mg/dL Est Cr Clr Drug Dosing 66.17 mL/min Estimated GFR (MDRD) > 60 Glucose 85 (74-99) mg/dL Calcium 9.6 (8.5-10.1) mg/dL Ferritin 301 H (8-252) mg/mL Total Bilirubin 0.3 (0.2-1.0) mg/dL Direct Bilirubin 0.1 (0.0-0.2) mg/dL Indirect Bilirubin 0.2 AST 21 (15-37) U/L ALT 23 (14-59) U/L Alkaline Phosphatase 81 (46-116) U/L C-Reactive Protein 14.4 H (0.0-0.9) mg/dL Total Protein 6.5 (6.4-8.2) g/dL Albumin 2.6 L (3.4-5.0) g/dL Globulin 3.9 Albumin/Globulin Ratio 0.67 Procalcitonin (<0.10) ng/mL Lukas Results Last 24 Hours: Microbiology 01/11/20 13:23 Aerobic Blood Culture - Preliminary Blood - Arm, Right NO GROWTH AFTER 1 DAY Anaerobic Blood Culture - Preliminary NO GROWTH AFTER 1 DAY Med Orders - Current: Current Medications Acetaminophen (Tylenol) 650 mg PO Q4H PRN PRN Reason: Pain (Mild 1-3)/fever Last Admin: 01/13/20 09:23 Dose: 650 mg Documented by: Hydrocodone Bitart/Acetaminophen ([place] 325-10 Mg) 1 tab PO Q4H PRN PRN Reason: Pain (moderate 4-6) Last Admin: 01/12/20 18:25 Dose: 1 tab Documented by: Albuterol (Proventil Hfa) 0 gm INH Q4HR PRN PRN Reason: Wheezing Last Admin: 01/13/20 10:21 Dose: 2 puff Documented by: Calcium Carbonate (Calcium Carbonate/Vitamin D 1250 Mg-200 Unit) 1 tab PO BID@1200,2100 [facility] Last Admin: 01/13/20 12:16 Dose: 1 tab Documented by: Enoxaparin Sodium (Lovenox) 40 mg SUBCUT DAILY [facility] Last Admin: 01/13/20 08:14 Dose: 40 mg Documented by: Remdesivir 100 mg/ Sodium (Chloride) 230 mls @ 230 mls/hr IV Q24H [facility] Stop: 01/15/20 16:59 Last Admin: 01/12/20 16:02 Dose: 230 mls/hr Documented by: Levothyroxine Sodium (Levothyroxine) 25 mcg PO ACBREAKFAST [facility] Last Admin: 01/13/20 06:01 Dose: 25 mcg Documented by: Lorazepam (Ativan) 1 mg PO Q6HR PRN PRN Reason: anxiety Last Admin: 01/13/20 12:16 Dose: 1 mg Documented by: Mometasone Furoate/Formoterol Fumar (Dulera 200-5 Mcg) 2 puff IH BIDRT [facility] Last Admin: 01/13/20 06:04 Dose: 2 puff Documented by: Multivitamins (Thera) 1 each PO DAILY [facility] Last Admin: 01/13/20 08:14 Dose: 1 each Documented by: Ondansetron HCl (Zofran Odt) 4 mg PO Q6H PRN PRN Reason: nausea, able to take PO Last Admin: 01/12/20 09:33 Dose: 4 mg Documented by: Ondansetron HCl (Zofran) 4 mg IVPUSH Q6H PRN PRN Reason: Nausea/Vomiting Prednisone (Prednisone) 25 mg PO DAILY@0800 [facility] Last Admin: 01/13/20 08:14 Dose: 25 mg Documented by: Sodium Chloride (Saline Flush) 10 ml FLUSH ASDIRECTED PRN PRN Reason: Keep Vein Open Last Admin: 01/11/20 16:28 Dose: 10 ml Documented by: Sodium Chloride (Saline Flush) 30 ml IV DAILY@1700 [facility] Stop: 01/15/20 17:01 Last Admin: 01/12/20 17:15 Dose: 30 ml Documented by: Zolpidem Tartrate (Ambien) 5 mg PO BEDTIME PRN PRN Reason: Sleep Discontinued Medications Dexamethasone (Dexamethasone) 6 mg PO DAILY [facility] Stop: 01/21/20 09:01 Remdesivir 200 mg/ Sodium (Chloride) 210 mls @ 210 mls/hr IV ONETIME ONE Stop: 01/11/20 16:59 Last Infusion: 01/11/20 18:04 Dose: Infused Documented by: Lorazepam (Ativan) 1 mg PO BEDTIME PRN PRN Reason: anxiety - Exam Quality Assessment: Supplemental Oxygen General: Alert, Oriented Lungs: Normal Respiratory Effort, Rhonchi Cardiovascular: Regular Rate, Regular Rhythm Extremities: No: Pedal Edema Psy/Mental Status: Alert, Normal Affect, Normal Mood Sepsis Event Note - Evaluation Sepsis Screening Result: No Definite Risk - Focused Exam Vital Signs: Vital Signs Temp Pulse Resp BP Pulse Ox Pulse Ox 01/13/20 12:00 99.0 F 84 20 110/57 L 92 L 01/13/20 08:00 99.4 F 83 20 97/53 L 91 L 91 L 01/13/20 05:57 99.2 F 79 20 91/58 L 84 L 01/13/20 04:00 92 L - Problem List & Annotations (1) Acute hypoxemic respiratory failure due to COVID-19 SNOMED Code(s): 369397244 Code(s): U07.1 - COVID-19; J96.01 - ACUTE RESPIRATORY FAILURE WITH HYPOXIA Status: Acute Current Visit: Yes (2) Pneumonia due to COVID-19 virus SNOMED Code(s): 605627420337256359 Code(s): U07.1 - COVID-19; J12.89 - OTHER VIRAL PNEUMONIA Status: Acute Current Visit: Yes (3) Ulcerative colitis SNOMED Code(s): 06032714 Code(s): K51.90 - ULCERATIVE COLITIS, UNSPECIFIED, WITHOUT COMPLICATIONS Status: Acute Current Visit: No - Problem List Review Problem List Initiated/Reviewed/Updated: Yes - My Orders Last 24 Hours: My Active Orders 01/12/20 16:00 Remdesivir (Eua) [Remdesivir (EUA)] 100 mg Sodium Chloride 0.9% [Normal Saline] 230 ml IV Q24H 01/13/20 06:17 PROCALCITONIN [REF] DAILY 01/14/20 05:00 PROCALCITONIN [REF] DAILY 01/14/20 05:11 BASIC METABOLIC PANEL,BMP [CHEM] AM C-REACTIVE PROTEIN [CHEM] AM CBC WITH AUTO DIFF [HEME] AM D-DIMER QUANTITATIVE [COAG] AM FERRITIN [CHEM] AM HEPATIC FUNCTION PANEL,HFP [CHEM] AM 01/15/20 05:00 PROCALCITONIN [REF] DAILY 01/15/20 05:11 BASIC METABOLIC PANEL,BMP [CHEM] AM C-REACTIVE PROTEIN [CHEM] AM CBC WITH AUTO DIFF [HEME] AM D-DIMER QUANTITATIVE [COAG] AM FERRITIN [CHEM] AM HEPATIC FUNCTION PANEL,HFP [CHEM] AM 01/16/20 05:00 PROCALCITONIN [REF] DAILY 01/16/20 05:11 BASIC METABOLIC PANEL,BMP [CHEM] AM C-REACTIVE PROTEIN [CHEM] AM CBC WITH AUTO DIFF [HEME] AM D-DIMER QUANTITATIVE [COAG] AM FERRITIN [CHEM] AM HEPATIC FUNCTION PANEL,HFP [CHEM] AM - Plan Plan:: presented with increasing shortness of breath and hypoxemia Acute hypoxemic respiratory failure secondary to Covid 19 pneumonia Supplement oxygen as needed Will likely need home oxygen Covid 19 pneumonia symptoms started on December Positive covid 19 screen on 01 January GI and pulmonary symptoms, fever, chills, cough, More sob 01/07-01/10 at home associated with hypoxemia 77% on RA 01/10 in clinic LFT, Renal fx. Is good treat with Remdesivir 01/06- (re hypoxemia, immunosuppressed) Continue prednisone (on it for Ulcerative colitis) Plasma : no ( far out from initial symptoms) evaluate for concurrent bacterial infections low pro-calcitonin levels hold Abx Ddimer is low - DVT prophylaxis SQ Lovenox daily Ulcerative colitis Cont prednisone Hold tofacitinib
[2020-01-13] MEDS: Ondansetron 4 MG Tab.DIS PO PRN (15:52)
[2020-01-13] MEDS: Sodium Chloride 0.9% 10 ML Syringe IV SCH (17:25)
[2020-01-13] MEDS: guaiFENesin/Dextromethorphan 100-10 MG/5 ML Soln 5 ML Cup PO PRN (19:48)
[2020-01-13] MEDS: Acetaminophen/HYDROcodone 325-10 MG Tab PO PRN (19:48)
[2020-01-14] MEDS: Levothyroxine 25 MCG Tab PO SCH (05:44)
[2020-01-14] MEDS: guaiFENesin/Dextromethorphan 100-10 MG/5 ML Soln 5 ML Cup PO PRN ×3 (05:54→19:05)
[2020-01-14] MEDS: LORazepam 1 MG Tab PO PRN ×3 (05:55→19:05)
[2020-01-14] MEDS: Formoterol/Mometasone 200-5 MCG 8.8 GM Inhaler IH SCH ×2 (05:59→17:31)
[2020-01-14 07:18] LABS: ANION GAP 9.9 mEq/L (7-13); CHLORIDE,CL 103 mmol/L (98-107); SODIUM,NA 142 mmol/L (136-145)
[2020-01-14] MEDS: Albuterol 6.7 GM Inhaler INH PRN ×2 (07:20→19:09)
[2020-01-14] MEDS: Enoxaparin 40 MG/0.4 ML Syringe SUBCUT SCH ×2 (08:04→20:20)
[2020-01-14] MEDS: Multivitamins,Therapeutic Tab PO SCH (08:04)
[2020-01-14] MEDS: predniSONE 10 MG Tab PO SCH (08:04)
[2020-01-14] MEDS: Calcium Carbonate/Vitamin D3 1250 MG-200 Unit Tab PO SCH ×2 (12:20→20:20)
--- NOTE | 2020-01-14 14:28 | PCM.PN ---
- General Info Date of Service: 01/14/20 Admission Dx/Problem (Free Text): Admission Diagnosis/Problem Admission Diagnosis/Problem Pneumonia Subjective Update: continues to have cough and hypoxemia with minimal activity. Symptoms started prior to admission. needs fairly high oxygen supplement with activities Has cough, no sputum no fever or chills. No diarrhea. no leg swelling + anxiety Functional Status: Reports: Tolerating Diet, Ambulating - Review of Systems General: Denies: Fever Pulmonary: Reports: Shortness of Breath Cardiovascular: Denies: Edema Genitourinary: Denies: Dysuria Neurological: Denies: Confusion - Patient Data Vitals - Most Recent: Last Vital Signs Temp 98.8 F 01/14/20 07:00 Pulse 64 01/14/20 07:00 Resp 20 01/14/20 08:00 BP 95/50 L 01/14/20 07:00 Pulse Ox 91 L 01/14/20 08:00 Weight - Most Recent: 220 lb I&O - Last 24 Hours: Intake & Output 01/13/20 01/14/20 01/14/20 22:59 06:59 14:59 Intake Total 240 Balance 240 Lab Results Last 24 Hours: Laboratory Results - last 24 hr 01/13/20 01/14/20 01/14/20 Range/Units 06:17 06:30 06:30 WBC 3.5 L (5.0-10.0) 10^3/uL RBC 3.96 L (4.2-5.4) 10^6/uL Hgb 11.7 L (12.0-16.0) g/dL Hct 36.5 L (37.0-47.0) % MCV 92.2 (80-100) fL MCH 29.5 (27.0-34.0) pg MCHC 32.1 L (33.0-35.0) g/dL Plt Count 281 (150-450) 10^3/uL Neut % (Auto) 49.0 (42.2-75.2) % Lymph % (Auto) 41.3 (20.5-50.1) % [place] % (Auto) 8.8 H (2-8) % Eos % (Auto) 0.6 L (1.0-3.0) % Baso % (Auto) 0.3 (0.0-1.0) % D-Dimer, Quantitative 883 H (0-400) ng/mL Sodium (136-145) mmol/L Potassium (3.5-5.1) mmol/L Chloride (98-107) mmol/L Carbon Dioxide (21-32) mmol/L Anion Gap (7-13) mEq/L BUN (7-18) mg/dL Creatinine (0.55-1.02) mg/dL Est Cr Clr Drug Dosing mL/min Estimated GFR (MDRD) Glucose (74-99) mg/dL Calcium (8.5-10.1) mg/dL Ferritin (8-252) mg/mL Total Bilirubin (0.2-1.0) mg/dL Direct Bilirubin (0.0-0.2) mg/dL Indirect Bilirubin AST (15-37) U/L ALT (14-59) U/L Alkaline Phosphatase (46-116) U/L C-Reactive Protein (0.0-0.9) mg/dL Total Protein (6.4-8.2) g/dL Albumin (3.4-5.0) g/dL Globulin Albumin/Globulin Ratio Procalcitonin <0.05 (<0.10) ng/mL 01/14/20 01/14/20 Range/Units 06:30 06:30 WBC (5.0-10.0) 10^3/uL RBC (4.2-5.4) 10^6/uL Hgb (12.0-16.0) g/dL Hct (37.0-47.0) % MCV (80-100) fL MCH (27.0-34.0) pg MCHC (33.0-35.0) g/dL Plt Count (150-450) 10^3/uL Neut % (Auto) (42.2-75.2) % Lymph % (Auto) (20.5-50.1) % [place] % (Auto) (2-8) % Eos % (Auto) (1.0-3.0) % Baso % (Auto) (0.0-1.0) % D-Dimer, Quantitative (0-400) ng/mL Sodium 142 (136-145) mmol/L Potassium 3.9 (3.5-5.1) mmol/L Chloride 103 (98-107) mmol/L Carbon Dioxide 33 H (21-32) mmol/L Anion Gap 9.9 (7-13) mEq/L BUN 17 (7-18) mg/dL Creatinine 0.79 (0.55-1.02) mg/dL Est Cr Clr Drug Dosing 67.85 mL/min Estimated GFR (MDRD) > 60 Glucose 93 (74-99) mg/dL Calcium 9.4 (8.5-10.1) mg/dL Ferritin 261 H (8-252) mg/mL Total Bilirubin 0.3 (0.2-1.0) mg/dL Direct Bilirubin 0.1 (0.0-0.2) mg/dL Indirect Bilirubin 0.2 AST 23 (15-37) U/L ALT 24 (14-59) U/L Alkaline Phosphatase 79 (46-116) U/L C-Reactive Protein 8.7 H (0.0-0.9) mg/dL Total Protein 6.3 L (6.4-8.2) g/dL Albumin 2.5 L (3.4-5.0) g/dL Globulin 3.8 Albumin/Globulin Ratio 0.66 Procalcitonin (<0.10) ng/mL [facility] Results Last 24 Hours: Microbiology 01/11/20 13:23 Aerobic Blood Culture - Preliminary Blood - Arm, Right NO GROWTH AFTER 3 DAYS Anaerobic Blood Culture - Preliminary NO GROWTH AFTER 3 DAYS Med Orders - Current: Current Medications Acetaminophen (Tylenol) 650 mg PO Q4H PRN PRN Reason: Pain (Mild 1-3)/fever Last Admin: 01/13/20 09:23 Dose: 650 mg Documented by: Hydrocodone Bitart/Acetaminophen ([place] 325-10 Mg) 1 tab PO Q4H PRN PRN Reason: Pain (moderate 4-6) Last Admin: 01/13/20 19:48 Dose: 1 tab Documented by: Albuterol (Proventil Hfa) 0 gm INH Q4HR PRN PRN Reason: Wheezing Last Admin: 01/14/20 07:20 Dose: 2 puff Documented by: Calcium Carbonate (Calcium Carbonate/Vitamin D 1250 Mg-200 Unit) 1 tab PO BID@1200,2100 [facility] Last Admin: 01/14/20 12:20 Dose: 1 tab Documented by: Enoxaparin Sodium (Lovenox) 40 mg SUBCUT BID [facility]CARLOS Guaifenesin/Phenylephrine HCl (Robitussin Dm) 10 ml PO Q6H PRN PRN Reason: Cough Last Admin: 01/14/20 13:11 Dose: 10 ml Documented by: Remdesivir 100 mg/ Sodium (Chloride) 230 mls @ 230 mls/hr IV Q24H [facility] Stop: 01/15/20 16:59 Last Admin: 01/13/20 15:55 Dose: 230 mls/hr Documented by: Levothyroxine Sodium (Levothyroxine) 25 mcg PO ACBREAKFAST [facility] Last Admin: 01/14/20 05:44 Dose: 25 mcg Documented by: Lorazepam (Ativan) 1 mg PO Q6HR PRN PRN Reason: anxiety Last Admin: 01/14/20 13:10 Dose: 1 mg Documented by: Mometasone Furoate/Formoterol Fumar (Dulera 200-5 Mcg) 2 puff IH BIDRT [facility] Last Admin: 01/14/20 05:59 Dose: 2 puff Documented by: Multivitamins (Thera) 1 each PO DAILY [facility] Last Admin: 01/14/20 08:04 Dose: 1 each Documented by: Ondansetron HCl (Zofran Odt) 4 mg PO Q6H PRN PRN Reason: nausea, able to take PO Last Admin: 01/13/20 15:52 Dose: 4 mg Documented by: Ondansetron HCl (Zofran) 4 mg IVPUSH Q6H PRN PRN Reason: Nausea/Vomiting Prednisone (Prednisone) 25 mg PO DAILY@0800 [facility] Last Admin: 01/14/20 08:04 Dose: 25 mg Documented by: Sodium Chloride (Saline Flush) 10 ml FLUSH ASDIRECTED PRN PRN Reason: Keep Vein Open Last Admin: 01/11/20 16:28 Dose: 10 ml Documented by: Sodium Chloride (Saline Flush) 30 ml IV DAILY@1700 [facility] Stop: 01/15/20 17:01 Last Admin: 01/13/20 17:25 Dose: 30 ml Documented by: Zolpidem Tartrate (Ambien) 5 mg PO BEDTIME PRN PRN Reason: Sleep Discontinued Medications Dexamethasone (Dexamethasone) 6 mg PO DAILY [facility] Stop: 01/21/20 09:01 Enoxaparin Sodium (Lovenox) 40 mg SUBCUT DAILY [facility] Last Admin: 01/14/20 08:04 Dose: 40 mg Documented by: Remdesivir 200 mg/ Sodium (Chloride) 210 mls @ 210 mls/hr IV ONETIME ONE Stop: 01/11/20 16:59 Last Infusion: 01/11/20 18:04 Dose: Infused Documented by: Lorazepam (Ativan) 1 mg PO BEDTIME PRN PRN Reason: anxiety - Exam Quality Assessment: Supplemental Oxygen General: Alert, Oriented Neck: Supple Lungs: Normal Respiratory Effort, Decreased Breath Sounds, Rhonchi Cardiovascular: Regular Rate, Regular Rhythm GI/Abdominal Exam: Normal Bowel Sounds, Soft, Non-Tender Extremities: No Pedal Edema Psy/Mental Status: Alert, Normal Affect, Normal Mood Sepsis Event Note - Evaluation Sepsis Screening Result: No Definite Risk - Focused Exam Vital Signs: Vital Signs Temp Pulse Resp BP Pulse Ox Pulse Ox 01/14/20 08:00 20 91 L 91 L 01/14/20 07:00 98.8 F 64 22 H 95/50 L 95 01/14/20 05:00 98.8 F 63 20 92/59 L 94 L - Problem List & Annotations (1) Acute hypoxemic respiratory failure due to COVID-19 SNOMED Code(s): 023366282 Code(s): U07.1 - COVID-19; J96.01 - ACUTE RESPIRATORY FAILURE WITH HYPOXIA Status: Acute Current Visit: Yes (2) Pneumonia due to COVID-19 virus SNOMED Code(s): 020528697964437173 Code(s): U07.1 - COVID-19; J12.89 - OTHER VIRAL PNEUMONIA Status: Acute Current Visit: Yes (3) Ulcerative colitis SNOMED Code(s): 34459413 Code(s): K51.90 - ULCERATIVE COLITIS, UNSPECIFIED, WITHOUT COMPLICATIONS Status: Acute Current Visit: No - Problem List Review Problem List Initiated/Reviewed/Updated: Yes - My Orders Last 24 Hours: My Active Orders 01/13/20 14:44 Dextromethorphan/guaiFENesin [Robitussin DM] 10 ml PO Q6H PRN 01/14/20 06:30 PROCALCITONIN [REF] DAILY 01/14/20 21:00 Enoxaparin [Lovenox] 40 mg SUBCUT BID 01/15/20 05:00 PROCALCITONIN [REF] DAILY 01/15/20 05:11 BASIC METABOLIC PANEL,BMP [CHEM] AM C-REACTIVE PROTEIN [CHEM] AM CBC WITH AUTO DIFF [HEME] AM D-DIMER QUANTITATIVE [COAG] AM FERRITIN [CHEM] AM HEPATIC FUNCTION PANEL,HFP [CHEM] AM 01/16/20 05:00 PROCALCITONIN [REF] DAILY 01/16/20 05:11 BASIC METABOLIC PANEL,BMP [CHEM] AM C-REACTIVE PROTEIN [CHEM] AM CBC WITH AUTO DIFF [HEME] AM D-DIMER QUANTITATIVE [COAG] AM FERRITIN [CHEM] AM HEPATIC FUNCTION PANEL,HFP [CHEM] AM - Plan Plan:: presented with increasing shortness of breath and hypoxemia Acute hypoxemic respiratory failure secondary to Covid 19 pneumonia Supplement oxygen as needed Will likely need home oxygen Covid 19 pneumonia symptoms started on December Positive covid 19 screen on 01 January GI and pulmonary symptoms, fever, chills, cough, More sob 01/07-01/10 at home associated with hypoxemia 77% on RA 01/10 in clinic LFT, Renal fx. Is good treat with Remdesivir 01/06- (re hypoxemia, immunosuppressed) Continue prednisone (on it for Ulcerative colitis) Plasma : no ( far out from initial symptoms) evaluate for concurrent bacterial infections low pro-calcitonin levels hold Abx Ddimer is increased - increase DVT prophylaxis SQ Lovenox to BID Ulcerative colitis Cont prednisone Hold tofacitinib
[2020-01-14] MEDS: Sodium Chloride 0.9% 10 ML Syringe IV SCH (17:31)
[2020-01-15] MEDS: LORazepam 1 MG Tab PO PRN ×3 (06:15→20:45)
[2020-01-15] MEDS: Levothyroxine 25 MCG Tab PO SCH (06:15)
[2020-01-15] MEDS: Formoterol/Mometasone 200-5 MCG 8.8 GM Inhaler IH SCH ×2 (06:16→20:44)
[2020-01-15] MEDS: Albuterol 6.7 GM Inhaler INH PRN (06:16)
[2020-01-15] MEDS: guaiFENesin/Dextromethorphan 100-10 MG/5 ML Soln 5 ML Cup PO PRN (06:16)
[2020-01-15 07:31] LABS: ANION GAP 11.8 mEq/L (7-13); CHLORIDE,CL 103 mmol/L (98-107); SODIUM,NA 143 mmol/L (136-145)
--- NOTE | 2020-01-15 07:50 | PCM.PN ---
- General Info Date of Service: 01/15/20 Admission Dx/Problem (Free Text): Admission Diagnosis/Problem Admission Diagnosis/Problem Pneumonia Subjective Update: has minimal cough Continues to have hypoxemia with minimal activity. requiring 100% Ventimask this morning Symptoms started prior to admission. no fever or chills. No diarrhea for days no leg swelling + anxiety Functional Status: Reports: Pain Controlled, Tolerating Diet. Denies: Ambulating - Review of Systems General: Denies: Fever Pulmonary: Reports: Shortness of Breath Cardiovascular: Denies: Chest Pain, Edema Gastrointestinal: Denies: Abdominal Pain Neurological: Denies: Confusion Psychiatric: Reports: Anxiety - Patient Data Vitals - Most Recent: Last Vital Signs Temp 97 F 01/15/20 03:31 Pulse 63 01/15/20 03:31 Resp 20 01/15/20 03:31 BP 93/55 L 01/15/20 03:31 Pulse Ox 92 L 01/15/20 03:31 Weight - Most Recent: 220 lb I&O - Last 24 Hours: Intake & Output 01/14/20 01/15/20 01/15/20 22:59 06:59 14:59 Intake Total 500 Balance 500 Lab Results Last 24 Hours: Laboratory Results - last 24 hr 01/13/20 01/14/20 01/14/20 Range/Units 06:17 06:30 06:30 WBC 3.5 L (5.0-10.0) 10^3/uL RBC 3.96 L (4.2-5.4) 10^6/uL Hgb 11.7 L (12.0-16.0) g/dL Hct 36.5 L (37.0-47.0) % MCV 92.2 (80-100) fL MCH 29.5 (27.0-34.0) pg MCHC 32.1 L (33.0-35.0) g/dL Plt Count 281 (150-450) 10^3/uL Neut % (Auto) 49.0 (42.2-75.2) % Lymph % (Auto) 41.3 (20.5-50.1) % [place] % (Auto) 8.8 H (2-8) % Eos % (Auto) 0.6 L (1.0-3.0) % Baso % (Auto) 0.3 (0.0-1.0) % D-Dimer, Quantitative (0-400) ng/mL Sodium (136-145) mmol/L Potassium (3.5-5.1) mmol/L Chloride (98-107) mmol/L Carbon Dioxide (21-32) mmol/L Anion Gap (7-13) mEq/L BUN (7-18) mg/dL Creatinine (0.55-1.02) mg/dL Est Cr Clr Drug Dosing mL/min Estimated GFR (MDRD) Glucose (74-99) mg/dL Calcium (8.5-10.1) mg/dL Ferritin (8-252) mg/mL Total Bilirubin (0.2-1.0) mg/dL Direct Bilirubin (0.0-0.2) mg/dL Indirect Bilirubin AST (15-37) U/L ALT (14-59) U/L Alkaline Phosphatase (46-116) U/L C-Reactive Protein (0.0-0.9) mg/dL Total Protein (6.4-8.2) g/dL Albumin (3.4-5.0) g/dL Globulin Albumin/Globulin Ratio Procalcitonin <0.05 <0.05 (<0.10) ng/mL 01/14/20 01/15/20 01/15/20 Range/Units 06:30 00:45 06:45 WBC 6.7 (5.0-10.0) 10^3/uL RBC 4.23 (4.2-5.4) 10^6/uL Hgb 12.5 (12.0-16.0) g/dL Hct 38.8 (37.0-47.0) % MCV 91.7 (80-100) fL MCH 29.6 (27.0-34.0) pg MCHC 32.2 L (33.0-35.0) g/dL Plt Count 349 (150-450) 10^3/uL Neut % (Auto) 56.8 (42.2-75.2) % Lymph % (Auto) 34.7 (20.5-50.1) % [place] % (Auto) 8.0 (2-8) % Eos % (Auto) 0.3 L (1.0-3.0) % Baso % (Auto) 0.2 (0.0-1.0) % D-Dimer, Quantitative 645 H (0-400) ng/mL Sodium (136-145) mmol/L Potassium (3.5-5.1) mmol/L Chloride (98-107) mmol/L Carbon Dioxide (21-32) mmol/L Anion Gap (7-13) mEq/L BUN (7-18) mg/dL Creatinine (0.55-1.02) mg/dL Est Cr Clr Drug Dosing mL/min Estimated GFR (MDRD) Glucose (74-99) mg/dL Calcium (8.5-10.1) mg/dL Ferritin 261 H (8-252) mg/mL Total Bilirubin (0.2-1.0) mg/dL Direct Bilirubin (0.0-0.2) mg/dL Indirect Bilirubin AST (15-37) U/L ALT (14-59) U/L Alkaline Phosphatase (46-116) U/L C-Reactive Protein (0.0-0.9) mg/dL Total Protein (6.4-8.2) g/dL Albumin (3.4-5.0) g/dL Globulin Albumin/Globulin Ratio Procalcitonin (<0.10) ng/mL 01/15/20 01/15/20 Range/Units 06:45 06:45 WBC (5.0-10.0) 10^3/uL RBC (4.2-5.4) 10^6/uL Hgb (12.0-16.0) g/dL Hct (37.0-47.0) % MCV (80-100) fL MCH (27.0-34.0) pg MCHC (33.0-35.0) g/dL Plt Count (150-450) 10^3/uL Neut % (Auto) (42.2-75.2) % Lymph % (Auto) (20.5-50.1) % [place] % (Auto) (2-8) % Eos % (Auto) (1.0-3.0) % Baso % (Auto) (0.0-1.0) % D-Dimer, Quantitative (0-400) ng/mL Sodium 143 (136-145) mmol/L Potassium 3.8 (3.5-5.1) mmol/L Chloride 103 (98-107) mmol/L Carbon Dioxide 32 (21-32) mmol/L Anion Gap 11.8 (7-13) mEq/L BUN 17 (7-18) mg/dL Creatinine 0.87 (0.55-1.02) mg/dL Est Cr Clr Drug Dosing 61.61 mL/min Estimated GFR (MDRD) > 60 Glucose 94 (74-99) mg/dL Calcium 9.6 (8.5-10.1) mg/dL Ferritin 221 (8-252) mg/mL Total Bilirubin 0.3 (0.2-1.0) mg/dL Direct Bilirubin 0.1 (0.0-0.2) mg/dL Indirect Bilirubin 0.2 AST 23 (15-37) U/L ALT 28 (14-59) U/L Alkaline Phosphatase 89 (46-116) U/L C-Reactive Protein 6.7 H (0.0-0.9) mg/dL Total Protein 6.4 (6.4-8.2) g/dL Albumin 2.9 L (3.4-5.0) g/dL Globulin 3.5 Albumin/Globulin Ratio 0.83 Procalcitonin (<0.10) ng/mL [facility] Results Last 24 Hours: Microbiology 01/11/20 13:23 Aerobic Blood Culture - Preliminary Blood - Arm, Right NO GROWTH AFTER 3 DAYS Anaerobic Blood Culture - Preliminary NO GROWTH AFTER 3 DAYS Med Orders - Current: Current Medications Acetaminophen (Tylenol) 650 mg PO Q4H PRN PRN Reason: Pain (Mild 1-3)/fever Last Admin: 01/13/20 09:23 Dose: 650 mg Documented by: Hydrocodone Bitart/Acetaminophen ([place] 325-10 Mg) 1 tab PO Q4H PRN PRN Reason: Pain (moderate 4-6) Last Admin: 01/13/20 19:48 Dose: 1 tab Documented by: Albuterol (Proventil Hfa) 0 gm INH Q4HR PRN PRN Reason: Wheezing Last Admin: 01/15/20 06:16 Dose: 2 puff Documented by: Calcium Carbonate (Calcium Carbonate/Vitamin D 1250 Mg-200 Unit) 1 tab PO BID@1200,2100 [facility] Last Admin: 01/14/20 20:20 Dose: 1 tab Documented by: Enoxaparin Sodium (Lovenox) 40 mg SUBCUT BID [facility] Last Admin: 01/14/20 20:20 Dose: 40 mg Documented by: Guaifenesin/Phenylephrine HCl (Robitussin Dm) 10 ml PO Q6H PRN PRN Reason: Cough Last Admin: 01/15/20 06:16 Dose: 10 ml Documented by: Remdesivir 100 mg/ Sodium (Chloride) 230 mls @ 230 mls/hr IV Q24H [facility] Stop: 01/15/20 16:59 Last Admin: 01/14/20 16:26 Dose: 230 mls/hr Documented by: Levothyroxine Sodium (Levothyroxine) 25 mcg PO ACBREAKFAST [facility] Last Admin: 01/15/20 06:15 Dose: 25 mcg Documented by: Lorazepam (Ativan) 1 mg PO Q6HR PRN PRN Reason: anxiety Last Admin: 01/15/20 06:15 Dose: 1 mg Documented by: Mometasone Furoate/Formoterol Fumar ([place] 200-5 Mcg) 2 puff IH BIDRT [facility] Last Admin: 01/15/20 06:16 Dose: 2 puff Documented by: Multivitamins (Thera) 1 each PO DAILY [facility] Last Admin: 01/14/20 08:04 Dose: 1 each Documented by: Ondansetron HCl (Zofran Odt) 4 mg PO Q6H PRN PRN Reason: nausea, able to take PO Last Admin: 01/13/20 15:52 Dose: 4 mg Documented by: Ondansetron HCl (Zofran) 4 mg IVPUSH Q6H PRN PRN Reason: Nausea/Vomiting Prednisone (Prednisone) 25 mg PO DAILY@0800 [facility] Last Admin: 01/14/20 08:04 Dose: 25 mg Documented by: Sodium Chloride (Saline Flush) 10 ml FLUSH ASDIRECTED PRN PRN Reason: Keep Vein Open Last Admin: 01/11/20 16:28 Dose: 10 ml Documented by: Sodium Chloride (Saline Flush) 30 ml IV DAILY@1700 [facility] Stop: 01/15/20 17:01 Last Admin: 01/14/20 17:31 Dose: 30 ml Documented by: Zolpidem Tartrate (Ambien) 5 mg PO BEDTIME PRN PRN Reason: Sleep Discontinued Medications Dexamethasone (Dexamethasone) 6 mg PO DAILY [facility] Stop: 01/21/20 09:01 Enoxaparin Sodium (Lovenox) 40 mg SUBCUT DAILY [facility] Last Admin: 01/14/20 08:04 Dose: 40 mg Documented by: Remdesivir 200 mg/ Sodium (Chloride) 210 mls @ 210 mls/hr IV ONETIME ONE Stop: 01/11/20 16:59 Last Infusion: 01/11/20 18:04 Dose: Infused Documented by: Lorazepam (Ativan) 1 mg PO BEDTIME PRN PRN Reason: anxiety - Exam Quality Assessment: Supplemental Oxygen (VMask) General: Alert, Oriented Neck: Supple Lungs: Normal Respiratory Effort, Rhonchi Cardiovascular: Regular Rate, Regular Rhythm GI/Abdominal Exam: Normal Bowel Sounds, Soft, Non-Tender Extremities: No Pedal Edema Skin: Warm, Dry Neurological: No New Focal Deficit Sepsis Event Note - Evaluation Sepsis Screening Result: No Definite Risk - Focused Exam Vital Signs: Vital Signs Temp Pulse Resp BP Pulse Ox 01/15/20 03:31 97 F 63 20 93/55 L 92 L 01/15/20 00:00 99.1 F 60 20 100/64 95 01/14/20 20:00 98.8 F 77 20 102/58 L 92 L - Problem List & Annotations (1) Acute hypoxemic respiratory failure due to COVID-19 SNOMED Code(s): 148502428 Code(s): U07.1 - COVID-19; J96.01 - ACUTE RESPIRATORY FAILURE WITH HYPOXIA Status: Acute Current Visit: Yes (2) Pneumonia due to COVID-19 virus SNOMED Code(s): 945518404933995220 Code(s): U07.1 - COVID-19; J12.89 - OTHER VIRAL PNEUMONIA Status: Acute Current Visit: Yes (3) Ulcerative colitis SNOMED Code(s): 58549795 Code(s): K51.90 - ULCERATIVE COLITIS, UNSPECIFIED, WITHOUT COMPLICATIONS Status: Acute Current Visit: No - Problem List Review Problem List Initiated/Reviewed/Updated: Yes - My Orders Last 24 Hours: My Active Orders 01/14/20 21:00 Enoxaparin [Lovenox] 40 mg SUBCUT BID 01/15/20 06:45 PROCALCITONIN [REF] DAILY 01/15/20 07:12 Chest PE [Ang Chest] [CT] Routine 01/16/20 05:00 PROCALCITONIN [REF] DAILY 01/16/20 05:11 BASIC METABOLIC PANEL,BMP [CHEM] AM C-REACTIVE PROTEIN [CHEM] AM CBC WITH AUTO DIFF [HEME] AM D-DIMER QUANTITATIVE [COAG] AM FERRITIN [CHEM] AM HEPATIC FUNCTION PANEL,HFP [CHEM] AM - Plan Plan:: presented with increasing shortness of breath and hypoxemia Acute hypoxemic respiratory failure secondary to Covid 19 pneumonia Supplement oxygen as needed, taper as possible Will likely need home oxygen Covid 19 pneumonia symptoms started on December Positive covid 19 screen on 01 January GI and pulmonary symptoms, fever, chills, cough resolved days ago More sob 01/07-01/10 at home associated with hypoxemia 77% on RA 01/10 in clinic LFT, Renal fx. Is good treated with Remdesivir 01/10-01/14 (re hypoxemia, immunosuppressed) - finish today Continue prednisone (on it for Ulcerative colitis) Plasma : no ( far out from initial symptoms) her symptoms other than hypoxemia has been gone for days out 2 wks from symptom onset stop isolation evaluate for concurrent bacterial infections low pro-calcitonin levels hold Abx Ddimer is increased - increased DVT prophylaxis SQ Lovenox to BID due to episodes of desaturation will get CT PEstudy Ulcerative colitis Cont prednisone Hold tofacitinib
[2020-01-15] MEDS ORDERED: Iopamidol 755 Mg/ML 100 ML Bottle IVPUSH ONE ×2 (09:00→09:05)
[2020-01-15] MEDS: predniSONE 10 MG Tab PO SCH (10:06)
[2020-01-15] MEDS: Enoxaparin 40 MG/0.4 ML Syringe SUBCUT SCH ×2 (10:08→20:46)
[2020-01-15] MEDS: Multivitamins,Therapeutic Tab PO SCH (10:08)
[2020-01-15] MEDS ORDERED: Benzocaine/Cetylpyridinium/Menthol Lozenge MUCMEM PRN (10:15)
--- NOTE | 2020-01-15 11:59 | CT ---
EXAMINATION: Chest w Cont SEX: Female AGE: 59 years CLINICAL HISTORY: 59-year-old hypoxemia female patient recently hospitalized (COVID19). D-dimer 645. Scan technique: Volume acquisition of data from the chest (bony thorax, lungs and mediastinum) obtained during the intravenous administration 77 mL nonionic Isovue 370 contrast at 5 cc/s while patient was lying supine on the Siemens multislice scanner [place], [place]. All data archived in the PACS system for storage, reformatting axial/sagittal/coronal planes, study (lung/mediastinal windows). Interpretation: ABNORMAL. 1. *Extensive, peripheral multilobar "groundglass" pneumonic like consolidation involving both lung bianchi (left greater than right). No underlying hilar/mediastinal lymphadenopathy or dependent pleural effusions. 2. No proximal focal lobar consolidation (infiltrate/atelectasis) or air bronchograms. 3. No parenchymal lung nodule or mass lesion. 4. Normal cardiac silhouette. No pericardial effusion. No cephalization of flow or alveolar edema. 5. No intraluminal filling defects or thrombus identified in the proximal or main pulmonary artery segments. 6. No pneumothorax or pneumomediastinum. No foreign bodies. Tracheal bronchial airway unremarkable. 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 No main pulmonary artery thrombus. No pleural effusions. No heart failure.
[2020-01-15] MEDS: Calcium Carbonate/Vitamin D3 1250 MG-200 Unit Tab PO SCH ×2 (13:34→20:44)
[2020-01-15] MEDS: Albuterol 6.7 GM Inhaler INH SCH ×2 (15:49→20:44)
[2020-01-15] MEDS: Sodium Chloride 0.9% 10 ML Syringe FLUSH PRN (16:06)
[2020-01-15] MEDS: Acetaminophen/HYDROcodone 325-10 MG Tab PO PRN (20:45)
[2020-01-15] MEDS: Sodium Chloride 0.9% 10 ML Syringe IV SCH (20:52)
[2020-01-16] MEDS: LORazepam 1 MG Tab PO PRN ×4 (03:28→20:38)
[2020-01-16] MEDS: Formoterol/Mometasone 200-5 MCG 8.8 GM Inhaler IH SCH ×2 (06:23→18:29)
[2020-01-16] MEDS: Levothyroxine 25 MCG Tab PO SCH (06:24)
[2020-01-16 07:57] LABS: ANION GAP 8.6 mEq/L (7-13); CHLORIDE,CL 104 mmol/L (98-107); SODIUM,NA 142 mmol/L (136-145)
[2020-01-16] MEDS: Enoxaparin 40 MG/0.4 ML Syringe SUBCUT SCH ×2 (08:42→20:38)
[2020-01-16] MEDS: predniSONE 10 MG Tab PO SCH (08:42)
[2020-01-16] MEDS: Multivitamins,Therapeutic Tab PO SCH (08:42)
[2020-01-16] MEDS: Albuterol 6.7 GM Inhaler INH SCH ×3 (08:43→20:40)
[2020-01-16] MEDS: Calcium Carbonate/Vitamin D3 1250 MG-200 Unit Tab PO SCH ×2 (12:24→20:38)
--- NOTE | 2020-01-16 15:05 | PCM.PN ---
- General Info Date of Service: 01/16/20 Admission Dx/Problem (Free Text): Admission Diagnosis/Problem Admission Diagnosis/Problem Pneumonia ( secondary to COVID-19) Subjective Update: Pt was seen in room, has minimal cough, Continues to have hypoxemia with minimal activity and on high flow oxygen. no fever or chills. No diarrhea for days no leg swelling Functional Status: Reports: Pain Controlled, Tolerating Diet, Urinating - Review of Systems General: Reports: Weakness, Appetite (is moderate). Denies: Fever, Chills HEENT: Denies: Headaches, Sinus Congestion, Visual Changes Pulmonary: Reports: Shortness of Breath, Cough (occasional) Cardiovascular: Denies: Chest Pain, Edema, Lightheadedness Gastrointestinal: Denies: Abdominal Pain, Difficulty Swallowing, Nausea, Vomiting Genitourinary: Denies: Dysuria, Burning, Urgency Musculoskeletal: Denies: Neck Pain, Shoulder Pain, Arm Pain, Joint Swelling Skin: Denies: Cyanosis, Jaundice, Bruising, Rash Neurological: Reports: Weakness. Denies: Confusion, Tingling, Tremors Psychiatric: Reports: No Symptoms - Patient Data Vitals - Most Recent: Last Vital Signs Temp 37.2 C 01/16/20 12:00 Pulse 89 01/16/20 12:00 Resp 16 01/16/20 12:00 BP 103/63 01/16/20 12:00 Pulse Ox 94 L 01/16/20 12:00 Weight - Most Recent: 99.79 kg I&O - Last 24 Hours: Intake & Output 01/16/20 01/16/20 01/16/20 06:59 14:59 22:59 Intake Total 600 Balance 600 Lab Results Last 24 Hours: Laboratory Results - last 24 hr 01/15/20 01/16/20 01/16/20 Range/Units 06:45 06:10 06:10 WBC 5.8 (5.0-10.0) 10^3/uL RBC 3.89 L (4.2-5.4) 10^6/uL Hgb 11.6 L (12.0-16.0) g/dL Hct 35.8 L (37.0-47.0) % MCV 92.0 (80-100) fL MCH 29.8 (27.0-34.0) pg MCHC 32.4 L (33.0-35.0) g/dL Plt Count 348 (150-450) 10^3/uL Neut % (Auto) 65.8 (42.2-75.2) % Lymph % (Auto) 24.8 (20.5-50.1) % [place] % (Auto) 8.7 H (2-8) % Eos % (Auto) 0.5 L (1.0-3.0) % Baso % (Auto) 0.2 (0.0-1.0) % D-Dimer, Quantitative 463 H (0-400) ng/mL Sodium (136-145) mmol/L Potassium (3.5-5.1) mmol/L Chloride (98-107) mmol/L Carbon Dioxide (21-32) mmol/L Anion Gap (7-13) mEq/L BUN (7-18) mg/dL Creatinine (0.55-1.02) mg/dL Est Cr Clr Drug Dosing mL/min Estimated GFR (MDRD) Glucose (74-99) mg/dL Calcium (8.5-10.1) mg/dL Ferritin (8-252) mg/mL Total Bilirubin (0.2-1.0) mg/dL Direct Bilirubin (0.0-0.2) mg/dL Indirect Bilirubin AST (15-37) U/L ALT (14-59) U/L Alkaline Phosphatase (46-116) U/L C-Reactive Protein (0.0-0.9) mg/dL Total Protein (6.4-8.2) g/dL Albumin (3.4-5.0) g/dL Globulin Albumin/Globulin Ratio Procalcitonin <0.05 (<0.10) ng/mL 01/16/20 01/16/20 Range/Units 06:10 06:10 WBC (5.0-10.0) 10^3/uL RBC (4.2-5.4) 10^6/uL Hgb (12.0-16.0) g/dL Hct (37.0-47.0) % MCV (80-100) fL MCH (27.0-34.0) pg MCHC (33.0-35.0) g/dL Plt Count (150-450) 10^3/uL Neut % (Auto) (42.2-75.2) % Lymph % (Auto) (20.5-50.1) % [place] % (Auto) (2-8) % Eos % (Auto) (1.0-3.0) % Baso % (Auto) (0.0-1.0) % D-Dimer, Quantitative (0-400) ng/mL Sodium 142 (136-145) mmol/L Potassium 3.6 (3.5-5.1) mmol/L Chloride 104 (98-107) mmol/L Carbon Dioxide 33 H (21-32) mmol/L Anion Gap 8.6 (7-13) mEq/L BUN 17 (7-18) mg/dL Creatinine 0.81 (0.55-1.02) mg/dL Est Cr Clr Drug Dosing 66.17 mL/min Estimated GFR (MDRD) > 60 Glucose 92 (74-99) mg/dL Calcium 9.6 (8.5-10.1) mg/dL Ferritin 180 (8-252) mg/mL Total Bilirubin 0.3 (0.2-1.0) mg/dL Direct Bilirubin 0.1 (0.0-0.2) mg/dL Indirect Bilirubin 0.2 AST 17 (15-37) U/L ALT 24 (14-59) U/L Alkaline Phosphatase 78 (46-116) U/L C-Reactive Protein 7.1 H (0.0-0.9) mg/dL Total Protein 6.3 L (6.4-8.2) g/dL Albumin 2.6 L (3.4-5.0) g/dL Globulin 3.7 Albumin/Globulin Ratio 0.70 Procalcitonin (<0.10) ng/mL [facility] Results Last 24 Hours: Microbiology 01/11/20 13:23 Aerobic Blood Culture - Final Blood - Arm, Right NO GROWTH AFTER 5 DAYS Anaerobic Blood Culture - Final NO GROWTH AFTER 5 DAYS Med Orders - Current: Current Medications Acetaminophen (Tylenol) 650 mg PO Q4H PRN PRN Reason: Pain (Mild 1-3)/fever Last Admin: 01/13/20 09:23 Dose: 650 mg Documented by: Hydrocodone Bitart/Acetaminophen ([place] 325-10 Mg) 1 tab PO Q4H PRN PRN Reason: Pain (moderate 4-6) Last Admin: 01/15/20 20:45 Dose: 1 tab Documented by: Albuterol (Proventil Hfa) 0 gm INH Q4HR PRN PRN Reason: Wheezing Last Admin: 01/15/20 06:16 Dose: 2 puff Documented by: Albuterol (Proventil Hfa) 0 gm INH TID [facility] Last Admin: 01/16/20 14:12 Dose: 2 mg Documented by: Benzocaine/Menthol (Cepacol Sore Throat) 1 lozenge MUCMEM Q6H PRN PRN Reason: cough, sore throat Calcium Carbonate (Calcium Carbonate/Vitamin D 1250 Mg-200 Unit) 1 tab PO BID@1200,2100 [facility] Last Admin: 01/16/20 12:24 Dose: 1 tab Documented by: Enoxaparin Sodium (Lovenox) 40 mg SUBCUT BID [facility] Last Admin: 01/16/20 08:42 Dose: 40 mg Documented by: Guaifenesin/Phenylephrine HCl (Robitussin Dm) 10 ml PO Q6H PRN PRN Reason: Cough Last Admin: 01/15/20 06:16 Dose: 10 ml Documented by: Levothyroxine Sodium (Levothyroxine) 25 mcg PO ACBREAKFAST [facility] Last Admin: 01/16/20 06:24 Dose: 25 mcg Documented by: Lorazepam (Ativan) 1 mg PO Q6HR PRN PRN Reason: anxiety Last Admin: 01/16/20 08:45 Dose: 1 mg Documented by: Mometasone Furoate/Formoterol Fumar (Dulera 200-5 Mcg) 2 puff IH BIDRT [facility] Last Admin: 01/16/20 06:23 Dose: 2 puff Documented by: Multivitamins (Thera) 1 each PO DAILY [facility] Last Admin: 01/16/20 08:42 Dose: 1 each Documented by: Ondansetron HCl (Zofran Odt) 4 mg PO Q6H PRN PRN Reason: nausea, able to take PO Last Admin: 01/13/20 15:52 Dose: 4 mg Documented by: Ondansetron HCl (Zofran) 4 mg IVPUSH Q6H PRN PRN Reason: Nausea/Vomiting Prednisone (Prednisone) 25 mg PO DAILY@0800 [facility] Last Admin: 01/16/20 08:42 Dose: 25 mg Documented by: Sodium Chloride (Saline Flush) 10 ml FLUSH ASDIRECTED PRN PRN Reason: Keep Vein Open Last Admin: 01/15/20 16:06 Dose: 10 ml Documented by: Zolpidem Tartrate (Ambien) 5 mg PO BEDTIME PRN PRN Reason: Sleep Discontinued Medications Dexamethasone (Dexamethasone) 6 mg PO DAILY [facility] Stop: 01/21/20 09:01 Enoxaparin Sodium (Lovenox) 40 mg SUBCUT DAILY [facility] Last Admin: 01/14/20 08:04 Dose: 40 mg Documented by: Remdesivir 200 mg/ Sodium (Chloride) 210 mls @ 210 mls/hr IV ONETIME ONE Stop: 01/11/20 16:59 Last Infusion: 01/11/20 18:04 Dose: Infused Documented by: Remdesivir 100 mg/ Sodium (Chloride) 230 mls @ 230 mls/hr IV Q24H [facility] Stop: 01/15/20 16:59 Last Admin: 01/15/20 16:05 Dose: 230 mls/hr Documented by: Iopamidol (Isovue-370 (76%)) 100 ml IVPUSH ONETIME ONE Stop: 01/15/20 09:06 Last Admin: 01/15/20 20:47 Dose: Not Given Documented by: Lorazepam (Ativan) 1 mg PO BEDTIME PRN PRN Reason: anxiety Sodium Chloride (Saline Flush) 30 ml IV DAILY@1700 [facility] Stop: 01/15/20 17:01 Last Admin: 01/15/20 20:52 Dose: 30 ml Documented by: - Exam Quality Assessment: Supplemental Oxygen (high flow), DVT Prophylaxis. No: Urine Catheter General: Alert, Oriented, Cooperative, No Acute Distress HEENT: Pupils Equal, Pupils Reactive, EOMI, Mucous Membr. Moist/[place] Neck: Supple, No JVD, No Thyromegaly Lungs: Normal Respiratory Effort, Decreased Breath Sounds Cardiovascular: Regular Rate, Regular Rhythm, Murmurs GI/Abdominal Exam: Normal Bowel Sounds, Soft, Non-Tender, No Organomegaly (Female) Exam: Deferred Back Exam: Normal Inspection Extremities: Normal Inspection, No Pedal Edema Skin: Warm, Dry, Intact Neurological: No New Focal Deficit Psy/Mental Status: Alert, Normal Affect, Normal Mood Sepsis Event Note - Evaluation Sepsis Screening Result: No Definite Risk - Focused Exam Vital Signs: Vital Signs Temp Pulse Resp BP BP Pulse Ox Pulse Ox 11/14/20 12:00 37.2 C 89 16 103/63 94 L 01/16/20 08:00 37.2 C 88 20 112/71 90 L 94 L 01/16/20 03:31 36.6 C 80 20 110/66 92 L - Problem List Review Problem List Initiated/Reviewed/Updated: Yes - Plan Plan:: This is a 59 Y/O F with a history of ulcerative colitis, the patient is immunosuppressed due to active treatment of ulcerative colitis. The patient's daughter had upper respiratory tract infection symptoms and was diagnosed with Covid, Week later the patient's and herself developed cough, fever, body ache, shortness of breath. She tested positive for the for Covid on December,. the patient's symptoms of fever, body ache actually improved. but prior to admission the patient was feeling increasingly short of breath. especially with activity. she checked her oxygen saturations and it was in the high 70s at home. she went to the primary care physician and was referred to the hospital for further paco lution treatment. presented with increasing shortness of breath and hypoxemia and was admitted with COVID- 19 pneumonia Impression and Plan: 1. Acute hypoxemic respiratory failure secondary to Covid 19 pneumonia - Continue Supplement oxygen and, taper as possible - Will likely need home oxygen ( not able to wean off) 2. Covid 19 pneumonia - symptoms started on December - Positive covid 19 screen on 01 January - GI and pulmonary symptoms, fever, chills, cough resolved days ago - became More sob 01/07-01/10 at home and was associated with hypoxemia 77% on RA 01/10 in clinic - LFT, Renal fx. Is good - treated with Remdesivir 01/10-01/14 (re hypoxemia, immunosuppressed) - finish the course Continue prednisone (on it for Ulcerative colitis) Plasma : no ( far out from initial symptoms) her symptoms other than hypoxemia has been gone for days out 2 wks from symptom onset -stopped isolation and now on regular room, needing high flow oxygen evaluate for concurrent bacterial infections - low pro-calcitonin levels - hold Abx 2. Ddimer is increased - increased DVT prophylaxis SQ Lovenox to BID 3. Ulcerative colitis: will Cont prednisone - Will Hold tofacitinib Code status: Full code
[2020-01-16] MEDS: guaiFENesin/Dextromethorphan 100-10 MG/5 ML Soln 5 ML Cup PO PRN (18:29)
[2020-01-17] MEDS: LORazepam 1 MG Tab PO PRN ×3 (06:15→20:22)
[2020-01-17] MEDS: Levothyroxine 25 MCG Tab PO SCH (06:15)
[2020-01-17] MEDS: Formoterol/Mometasone 200-5 MCG 8.8 GM Inhaler IH SCH ×2 (06:16→17:37)
[2020-01-17] MEDS: predniSONE 10 MG Tab PO SCH (09:25)
[2020-01-17] MEDS: Albuterol 6.7 GM Inhaler INH SCH ×3 (09:26→20:26)
[2020-01-17] MEDS: Multivitamins,Therapeutic Tab PO SCH (09:26)
[2020-01-17] MEDS: Enoxaparin 40 MG/0.4 ML Syringe SUBCUT SCH ×2 (09:26→20:23)
--- NOTE | 2020-01-17 12:41 | PCM.PN ---
- General Info Date of Service: 01/17/20 Admission Dx/Problem (Free Text): Admission Diagnosis/Problem Admission Diagnosis/Problem Pneumonia ( secondary to COVID-19) Subjective Update: Pt was seen in room, has minimal cough, Continues to have hypoxemia with minimal activity and on high flow oxygen. no fever or chills. No diarrhea for days no leg swelling Functional Status: Reports: Pain Controlled, Tolerating Diet, Urinating - Review of Systems General: Reports: Weakness, Appetite (acceptable). Denies: Fever, Chills HEENT: Denies: Headaches, Sinus Congestion, Sore Throat, Visual Changes Pulmonary: Reports: Shortness of Breath, Cough, Other (significant cracles to B/L lung base and Mid Lung) Cardiovascular: Denies: Chest Pain, Lightheadedness Gastrointestinal: Reports: Decreased Appetite. Denies: Abdominal Pain, Difficulty Swallowing, Nausea, Vomiting Genitourinary: Denies: Dysuria, Frequency, Burning, Urgency Musculoskeletal: Denies: Neck Pain, Arm Pain, Leg Pain, Joint Swelling Skin: Denies: Cyanosis, Jaundice, Bruising, Pruritis, Rash Neurological: Denies: Confusion, Numbness, Paresthesia, Tremors Psychiatric: Reports: Anxiety. Denies: Confusion, Agitation - Patient Data Vitals - Most Recent: Last Vital Signs Temp 37.9 C 01/17/20 12:00 Pulse 89 01/17/20 12:00 Resp 20 01/17/20 12:00 BP 99/59 L 01/17/20 12:00 Pulse Ox 90 L 01/17/20 12:00 Weight - Most Recent: 99.79 kg [facility] Results Last 24 Hours: Microbiology 01/11/20 13:23 Aerobic Blood Culture - Final Blood - Arm, Right NO GROWTH AFTER 5 DAYS Anaerobic Blood Culture - Final NO GROWTH AFTER 5 DAYS Med Orders - Current: Current Medications Acetaminophen (Tylenol) 650 mg PO Q4H PRN PRN Reason: Pain (Mild 1-3)/fever Last Admin: 01/13/20 09:23 Dose: 650 mg Documented by: Hydrocodone Bitart/Acetaminophen ([place] 325-10 Mg) 1 tab PO Q4H PRN PRN Reason: Pain (moderate 4-6) Last Admin: 01/15/20 20:45 Dose: 1 tab Documented by: Albuterol (Proventil Hfa) 0 gm INH Q4HR PRN PRN Reason: Wheezing Last Admin: 01/15/20 06:16 Dose: 2 puff Documented by: Albuterol (Proventil Hfa) 0 gm INH TID [facility] Last Admin: 01/17/20 09:26 Dose: 2 puff Documented by: Benzocaine/Menthol (Cepacol Sore Throat) 1 lozenge MUCMEM Q6H PRN PRN Reason: cough, sore throat Calcium Carbonate (Calcium Carbonate/Vitamin D 1250 Mg-200 Unit) 1 tab PO BID@1200,2100 [facility] Last Admin: 01/16/20 20:38 Dose: 1 tab Documented by: Enoxaparin Sodium (Lovenox) 40 mg SUBCUT BID [facility] Last Admin: 01/17/20 09:26 Dose: 40 mg Documented by: Guaifenesin/Phenylephrine HCl (Robitussin Dm) 10 ml PO Q6H PRN PRN Reason: Cough Last Admin: 01/16/20 18:29 Dose: 10 ml Documented by: Levothyroxine Sodium (Levothyroxine) 25 mcg PO ACBREAKFAST [facility] Last Admin: 01/17/20 06:15 Dose: 25 mcg Documented by: Lorazepam (Ativan) 1 mg PO Q6HR PRN PRN Reason: anxiety Last Admin: 01/17/20 06:15 Dose: 1 mg Documented by: Mometasone Furoate/Formoterol Fumar (Dulera 200-5 Mcg) 2 puff IH BIDRT [facility] Last Admin: 01/17/20 06:16 Dose: 2 puff Documented by: Multivitamins (Thera) 1 each PO DAILY [facility] Last Admin: 01/17/20 09:26 Dose: 1 each Documented by: Ondansetron HCl (Zofran Odt) 4 mg PO Q6H PRN PRN Reason: nausea, able to take PO Last Admin: 01/13/20 15:52 Dose: 4 mg Documented by: Ondansetron HCl (Zofran) 4 mg IVPUSH Q6H PRN PRN Reason: Nausea/Vomiting Prednisone (Prednisone) 25 mg PO DAILY@0800 [facility] Last Admin: 01/17/20 09:25 Dose: 25 mg Documented by: Sodium Chloride (Saline Flush) 10 ml FLUSH ASDIRECTED PRN PRN Reason: Keep Vein Open Last Admin: 01/15/20 16:06 Dose: 10 ml Documented by: Zolpidem Tartrate (Ambien) 5 mg PO BEDTIME PRN PRN Reason: Sleep Discontinued Medications Dexamethasone (Dexamethasone) 6 mg PO DAILY [facility] Stop: 01/21/20 09:01 Enoxaparin Sodium (Lovenox) 40 mg SUBCUT DAILY [facility] Last Admin: 01/14/20 08:04 Dose: 40 mg Documented by: Remdesivir 200 mg/ Sodium (Chloride) 210 mls @ 210 mls/hr IV ONETIME ONE Stop: 01/11/20 16:59 Last Infusion: 01/11/20 18:04 Dose: Infused Documented by: Remdesivir 100 mg/ Sodium (Chloride) 230 mls @ 230 mls/hr IV Q24H [facility] Stop: 01/15/20 16:59 Last Admin: 01/15/20 16:05 Dose: 230 mls/hr Documented by: Iopamidol (Isovue-370 (76%)) 100 ml IVPUSH ONETIME ONE Stop: 01/15/20 09:06 Last Admin: 01/15/20 20:47 Dose: Not Given Documented by: Lorazepam (Ativan) 1 mg PO BEDTIME PRN PRN Reason: anxiety Sodium Chloride (Saline Flush) 30 ml IV DAILY@1700 [facility] Stop: 01/15/20 17:01 Last Admin: 01/15/20 20:52 Dose: 30 ml Documented by: - Exam Quality Assessment: Supplemental Oxygen (high flow), DVT Prophylaxis. No: Central Line/PICC, Urine Catheter General: Alert, Oriented, Cooperative, No Acute Distress HEENT: Pupils Equal, Pupils Reactive, EOMI, Mucous Membr. Moist/[place] Neck: Supple, No JVD, No Thyromegaly Lungs: Normal Respiratory Effort, Decreased Breath Sounds, Crackles Cardiovascular: Regular Rate, Regular Rhythm GI/Abdominal Exam: Normal Bowel Sounds, Soft, Non-Tender. No: Guarding, Rigid (Female) Exam: Deferred Back Exam: Normal Inspection Extremities: Normal Inspection, No Pedal Edema Skin: Warm, Dry, Intact Neurological: No New Focal Deficit Psy/Mental Status: Alert, Normal Affect, Normal Mood Sepsis Event Note - Evaluation Sepsis Screening Result: No Definite Risk - Focused Exam Vital Signs: Vital Signs Temp Pulse Resp BP BP Pulse Ox Pulse Ox 01/17/20 12:00 37.9 C 89 20 99/59 L 90 L 01/17/20 08:00 37.6 C 86 18 109/60 91 L 90 L 01/17/20 02:10 37.0 C 84 20 115/61 91 L - Problem List Review Problem List Initiated/Reviewed/Updated: Yes - My Orders Last 24 Hours: My Active Orders 01/18/20 06:00 BASIC METABOLIC PANEL,BMP [CHEM] Routine - Plan Plan:: This is a 59 Y/O F with a history of ulcerative colitis, the patient is immunosuppressed due to active treatment of ulcerative colitis. The patient's daughter had upper respiratory tract infection symptoms and was diagnosed with Covid, Week later the patient's and herself developed cough, fever, body ache, shortness of breath. She tested positive for the for Covid on December,. the patient's symptoms of fever, body ache actually improved. but prior to admission the patient was feeling increasingly short of breath. especially with activity. she checked her oxygen saturations and it was in the high 70s at home. she went to the primary care physician and was referred to the hospital for further evolution treatment. presented with increasing shortness of breath and hypoxemia and was admitted with COVID- 19 pneumonia Impression and Plan: 1. Acute hypoxemic respiratory failure secondary to Covid 19 pneumonia - Continue Supplement oxygen and, taper as possible - Will likely need home oxygen ( not able to wean off) 2. Covid 19 pneumonia - symptoms started on December - Positive covid 19 screen on 01 January - GI and pulmonary symptoms, fever, chills, cough resolved days ago - became More sob 01/07-01/10 at home and was associated with hypoxemia 77% on RA 01/10 in clinic - LFT, Renal fx. Is good - treated with Remdesivir 01/10-01/14 (re hypoxemia, immunosuppressed) - finish the course -Continue prednisone (on it for Ulcerative colitis) Plasma : no ( far out from initial symptoms) her symptoms other than hypoxemia has been gone for days - out of Isolation 2 wks from symptom onset -evaluate for concurrent bacterial infections - low pro-calcitonin levels - hold Abx 2. Ddimer is increased - increased DVT prophylaxis SQ Lovenox to BID 3. Ulcerative colitis: will Cont prednisone - Will Hold tofacitinib Code status: Full code
[2020-01-17] MEDS: Calcium Carbonate/Vitamin D3 1250 MG-200 Unit Tab PO SCH ×2 (13:14→20:22)
[2020-01-17] MEDS: Acetaminophen/HYDROcodone 325-10 MG Tab PO PRN ×2 (14:58→20:22)
[2020-01-18] MEDS: Levothyroxine 25 MCG Tab PO SCH (05:47)
[2020-01-18] MEDS: LORazepam 1 MG Tab PO PRN ×2 (05:48→17:48)
[2020-01-18 06:54] LABS: ANION GAP 11.8 mEq/L (7-13); CHLORIDE,CL 103 mmol/L (98-107); SODIUM,NA 142 mmol/L (136-145)
[2020-01-18] MEDS: Formoterol/Mometasone 200-5 MCG 8.8 GM Inhaler IH SCH ×2 (08:25→17:50)
[2020-01-18] MEDS: predniSONE 10 MG Tab PO SCH (08:25)
[2020-01-18] MEDS: Enoxaparin 40 MG/0.4 ML Syringe SUBCUT SCH ×2 (08:26→21:11)
[2020-01-18] MEDS: Multivitamins,Therapeutic Tab PO SCH (08:26)
[2020-01-18] MEDS: Albuterol 6.7 GM Inhaler INH SCH ×3 (08:26→21:12)
--- NOTE | 2020-01-18 10:58 | PCM.PN ---
- General Info Date of Service: 01/18/20 Admission Dx/Problem (Free Text): Admission Diagnosis/Problem Admission Diagnosis/Problem Pneumonia ( secondary to COVID-19) Subjective Update: Pt was seen this morning. Patient continues to need high flow oxygen. Functional Status: Reports: Pain Controlled - Review of Systems General: Reports: No Symptoms HEENT: Reports: No Symptoms Pulmonary: Reports: Shortness of Breath, Cough Cardiovascular: Reports: No Symptoms Gastrointestinal: Reports: No Symptoms Genitourinary: Reports: No Symptoms Musculoskeletal: Reports: No Symptoms Skin: Reports: No Symptoms Neurological: Reports: No Symptoms Psychiatric: Reports: No Symptoms - Patient Data Vitals - Most Recent: Last Vital Signs Temp 98.7 F 01/18/20 08:26 Pulse 89 01/18/20 08:26 Resp 20 01/18/20 08:26 BP 92/58 L 01/18/20 08:26 Pulse Ox 86 L 01/18/20 08:26 Weight - Most Recent: 220 lb I&O - Last 24 Hours: Intake & Output 01/17/20 01/18/20 01/18/20 22:59 06:59 14:59 Intake Total 400 60 Balance 400 60 Lab Results Last 24 Hours: Laboratory Results - last 24 hr 01/18/20 01/18/20 Range/Units 05:20 05:20 WBC 5.3 (5.0-10.0) 10^3/uL RBC 4.10 L (4.2-5.4) 10^6/uL Hgb 12.1 (12.0-16.0) g/dL Hct 37.5 (37.0-47.0) % MCV 91.5 (80-100) fL MCH 29.5 (27.0-34.0) pg MCHC 32.3 L (33.0-35.0) g/dL Plt Count 371 (150-450) 10^3/uL Sodium 142 (136-145) mmol/L Potassium 3.8 (3.5-5.1) mmol/L Chloride 103 (98-107) mmol/L Carbon Dioxide 31 (21-32) mmol/L Anion Gap 11.8 (7-13) mEq/L BUN 16 (7-18) mg/dL Creatinine 0.80 (0.55-1.02) mg/dL Est Cr Clr Drug Dosing 67.00 mL/min Estimated GFR (MDRD) > 60 Glucose 98 (74-99) mg/dL Calcium 10.0 (8.5-10.1) mg/dL Med Orders - Current: Current Medications Acetaminophen (Tylenol) 650 mg PO Q4H PRN PRN Reason: Pain (Mild 1-3)/fever Last Admin: 01/13/20 09:23 Dose: 650 mg Documented by: Hydrocodone Bitart/Acetaminophen ([place] 325-10 Mg) 1 tab PO Q4H PRN PRN Reason: Pain (moderate 4-6) Last Admin: 01/17/20 20:22 Dose: 1 tab Documented by: Albuterol (Proventil Hfa) 0 gm INH Q4HR PRN PRN Reason: Wheezing Last Admin: 01/15/20 06:16 Dose: 2 puff Documented by: Albuterol (Proventil Hfa) 0 gm INH TID [facility] Last Admin: 01/18/20 08:26 Dose: 2 puff Documented by: Benzocaine/Menthol (Cepacol Sore Throat) 1 lozenge MUCMEM Q6H PRN PRN Reason: cough, sore throat Calcium Carbonate (Calcium Carbonate/Vitamin D 1250 Mg-200 Unit) 1 tab PO BID@1200,2100 [facility] Last Admin: 01/17/20 20:22 Dose: 1 tab Documented by: Enoxaparin Sodium (Lovenox) 40 mg SUBCUT BID [facility] Last Admin: 01/18/20 08:26 Dose: 40 mg Documented by: Guaifenesin/Phenylephrine HCl (Robitussin Dm) 10 ml PO Q6H PRN PRN Reason: Cough Last Admin: 01/16/20 18:29 Dose: 10 ml Documented by: Levothyroxine Sodium (Levothyroxine) 25 mcg PO ACBREAKFAST [facility] Last Admin: 01/18/20 05:47 Dose: 25 mcg Documented by: Lorazepam (Ativan) 1 mg PO Q6HR PRN PRN Reason: anxiety Last Admin: 01/18/20 05:48 Dose: 1 mg Documented by: Mometasone Furoate/Formoterol Fumar (Dulera 200-5 Mcg) 2 puff IH BIDRT [facility] Last Admin: 01/18/20 08:25 Dose: 2 puff Documented by: Multivitamins (Thera) 1 each PO DAILY [facility] Last Admin: 01/18/20 08:26 Dose: 1 each Documented by: Ondansetron HCl (Zofran Odt) 4 mg PO Q6H PRN PRN Reason: nausea, able to take PO Last Admin: 01/13/20 15:52 Dose: 4 mg Documented by: Ondansetron HCl (Zofran) 4 mg IVPUSH Q6H PRN PRN Reason: Nausea/Vomiting Prednisone (Prednisone) 25 mg PO DAILY@0800 [facility] Last Admin: 01/18/20 08:25 Dose: 25 mg Documented by: Sodium Chloride (Saline Flush) 10 ml FLUSH ASDIRECTED PRN PRN Reason: Keep Vein Open Last Admin: 01/15/20 16:06 Dose: 10 ml Documented by: Zolpidem Tartrate (Ambien) 5 mg PO BEDTIME PRN PRN Reason: Sleep Discontinued Medications Dexamethasone (Dexamethasone) 6 mg PO DAILY [facility] Stop: 01/21/20 09:01 Enoxaparin Sodium (Lovenox) 40 mg SUBCUT DAILY [facility] Last Admin: 01/14/20 08:04 Dose: 40 mg Documented by: Remdesivir 200 mg/ Sodium (Chloride) 210 mls @ 210 mls/hr IV ONETIME ONE Stop: 01/11/20 16:59 Last Infusion: 01/11/20 18:04 Dose: Infused Documented by: Remdesivir 100 mg/ Sodium (Chloride) 230 mls @ 230 mls/hr IV Q24H [facility] Stop: 01/15/20 16:59 Last Admin: 01/15/20 16:05 Dose: 230 mls/hr Documented by: Iopamidol (Isovue-370 (76%)) 100 ml IVPUSH ONETIME ONE Stop: 01/15/20 09:06 Last Admin: 01/15/20 20:47 Dose: Not Given Documented by: Lorazepam (Ativan) 1 mg PO BEDTIME PRN PRN Reason: anxiety Sodium Chloride (Saline Flush) 30 ml IV DAILY@1700 [facility] Stop: 01/15/20 17:01 Last Admin: 01/15/20 20:52 Dose: 30 ml Documented by: - Exam Quality Assessment: Supplemental Oxygen General: Alert, Oriented HEENT: Pupils Equal, Pupils Reactive, EOMI, Mucous Membr. Moist/[employer] Neck: Supple Lungs: Crackles Cardiovascular: Regular Rate, Regular Rhythm GI/Abdominal Exam: Normal Bowel Sounds, Soft, Non-Tender, No Organomegaly, No Distention, No Abnormal Bruit, No Mass, Pelvis Stable Back Exam: Normal Inspection, Full Range of Motion Extremities: Normal Inspection, Normal Range of Motion, Non-Tender, No Pedal Edema Skin: Warm, Dry, Intact Neurological: No New Focal Deficit Psy/Mental Status: Alert, Normal Affect, Normal Mood Sepsis Event Note - Evaluation Sepsis Screening Result: No Definite Risk - Focused Exam Vital Signs: Vital Signs Temp Pulse Resp BP BP Pulse Ox Pulse Ox 01/18/20 08:26 98.7 F 89 20 92/58 L 86 L 01/18/20 04:00 98.3 F 72 18 118/65 92 L 01/18/20 00:00 98.2 F 74 18 91 L 01/17/20 23:09 90 L - Problem List Review Problem List Initiated/Reviewed/Updated: Yes - Plan Plan:: This is a 59 Y/O F with a medical history of ulcerative colitis on chronic immunosuppression who presented with cough, fever, body aches and shortness of breath due to Covid pneumonia. Impression and Plan: 1. Acute hypoxemic respiratory failure secondary to Covid 19 pneumonia - Continue Supplement oxygen and, taper as possible - Will likely need home oxygen ( not able to wean off) 2. Covid 19 pneumonia - symptoms started on December - Positive covid 19 screen on 01 January - GI and pulmonary symptoms, fever, chills, cough resolved days ago - became More sob 01/07-01/10 at home and was associated with hypoxemia 77% on RA 01/10 in clinic - LFT, Renal fx. Is good - treated with Remdesivir 01/10-01/14 (re hypoxemia, immunosuppressed) - finish the course -Continue prednisone (on it for Ulcerative colitis) Plasma : no ( far out from initial symptoms) her symptoms other than hypoxemia has been gone for days - out of Isolation 2 wks from symptom onset -evaluate for concurrent bacterial infections - low pro-calcitonin levels - hold Abx 2. Ddimer is increased - increased DVT prophylaxis SQ Lovenox to BID 3. Ulcerative colitis: will Cont prednisone - Will Hold tofacitinib Code status: Full code
[2020-01-18] MEDS: Calcium Carbonate/Vitamin D3 1250 MG-200 Unit Tab PO SCH ×2 (12:55→21:11)
[2020-01-18] MEDS: Acetaminophen/HYDROcodone 325-10 MG Tab PO PRN (17:48)
[2020-01-19] MEDS: Levothyroxine 25 MCG Tab PO SCH (05:52)
[2020-01-19] MEDS: LORazepam 1 MG Tab PO PRN ×2 (05:53→14:14)
[2020-01-19] MEDS: Formoterol/Mometasone 200-5 MCG 8.8 GM Inhaler IH SCH ×2 (06:00→17:58)
[2020-01-19] MEDS: guaiFENesin/Dextromethorphan 100-10 MG/5 ML Soln 5 ML Cup PO PRN (06:04)
--- NOTE | 2020-01-19 08:29 | CR ---
PROCEDURE INFORMATION: Exam: XR Chest, 2 Views Exam date and time: 01/19/2020 7:46 AM Age: 59 years old Clinical indication: Shortness of breath TECHNIQUE: Imaging protocol: XR of the chest Views: 2 views. COMPARISON: 1. CT Chest w Cont 01/15/2020 11:26 AM 2. CR - Chest 1V Frontal 01/11/2020 3:13:00 PM FINDINGS: Lungs: Bilateral, asymmetric airspace disease more prominent on the left. On the left this has somewhat of a peripheral predominance. The findings could be due to pneumonia, including viral/atypical pneumonia such as COVID-19. No change in the airspace disease when allowing for technical differences and slightly improved inspiratory effort. Pleural space: No pleural effusion or pneumothorax. Heart/Mediastinum: The cardiac silhouette is not enlarged. The mediastinal contours are normal. Bones/joints: Mild curvature of the thoracic spine convex to the right associated with multilevel disc degeneration. IMPRESSION: No change in bilateral, asymmetric pneumonia.
[2020-01-19] MEDS: Enoxaparin 40 MG/0.4 ML Syringe SUBCUT SCH ×2 (09:07→23:15)
[2020-01-19] MEDS: Multivitamins,Therapeutic Tab PO SCH (09:09)
[2020-01-19] MEDS: predniSONE 10 MG Tab PO SCH (09:09)
[2020-01-19] MEDS: Albuterol 6.7 GM Inhaler INH SCH ×3 (09:10→23:14)
[2020-01-19] MEDS: Calcium Carbonate/Vitamin D3 1250 MG-200 Unit Tab PO SCH ×2 (12:02→23:15)
--- NOTE | 2020-01-19 12:56 | PCM.PN ---
- General Info Date of Service: 01/19/20 Admission Dx/Problem (Free Text): Admission Diagnosis/Problem Admission Diagnosis/Problem Pneumonia ( secondary to COVID-19) Subjective Update: Pt was seen this morning. Patient now down to 6 L by nasal cannula. - Review of Systems General: Reports: No Symptoms HEENT: Reports: No Symptoms Pulmonary: Reports: Shortness of Breath, Cough Cardiovascular: Reports: No Symptoms Gastrointestinal: Reports: No Symptoms Genitourinary: Reports: No Symptoms Musculoskeletal: Reports: No Symptoms Skin: Reports: No Symptoms Neurological: Reports: No Symptoms Psychiatric: Reports: No Symptoms - Patient Data Vitals - Most Recent: Last Vital Signs Temp 98.3 F 01/19/20 08:12 Pulse 89 01/19/20 08:12 Resp 20 01/19/20 08:12 BP 100/55 L 01/19/20 08:12 Pulse Ox 89 L 01/19/20 08:12 Weight - Most Recent: 220 lb I&O - Last 24 Hours: Intake & Output 01/18/20 01/19/20 01/19/20 22:59 06:59 14:59 Intake Total 120 Balance 120 Lab Results Last 24 Hours: Laboratory Results - last 24 hr 01/16/20 Range/Units 06:10 Procalcitonin <0.05 (<0.10) ng/mL Med Orders - Current: Current Medications Acetaminophen (Tylenol) 650 mg PO Q4H PRN PRN Reason: Pain (Mild 1-3)/fever Last Admin: 01/13/20 09:23 Dose: 650 mg Documented by: Hydrocodone Bitart/Acetaminophen ([place] 325-10 Mg) 1 tab PO Q4H PRN PRN Reason: Pain (moderate 4-6) Last Admin: 01/18/20 17:48 Dose: 1 tab Documented by: Albuterol (Proventil Hfa) 0 gm INH Q4HR PRN PRN Reason: Wheezing Last Admin: 01/15/20 06:16 Dose: 2 puff Documented by: Albuterol (Proventil Hfa) 0 gm INH TID [facility] Last Admin: 01/19/20 09:10 Dose: 2 puff Documented by: Benzocaine/Menthol (Cepacol Sore Throat) 1 lozenge MUCMEM Q6H PRN PRN Reason: cough, sore throat Calcium Carbonate (Calcium Carbonate/Vitamin D 1250 Mg-200 Unit) 1 tab PO BID@1200,2100 [facility] Last Admin: 01/19/20 12:02 Dose: 1 tab Documented by: Enoxaparin Sodium (Lovenox) 40 mg SUBCUT BID [facility] Last Admin: 01/19/20 09:07 Dose: 40 mg Documented by: Guaifenesin/Phenylephrine HCl (Robitussin Dm) 10 ml PO Q6H PRN PRN Reason: Cough Last Admin: 01/19/20 06:04 Dose: 10 ml Documented by: Levothyroxine Sodium (Levothyroxine) 25 mcg PO ACBREAKFAST [facility] Last Admin: 01/19/20 05:52 Dose: 25 mcg Documented by: Lorazepam (Ativan) 1 mg PO Q6HR PRN PRN Reason: anxiety Last Admin: 01/19/20 05:53 Dose: 1 mg Documented by: Mometasone Furoate/Formoterol Fumar (Dulera 200-5 Mcg) 2 puff IH BIDRT [facility] Last Admin: 01/19/20 06:00 Dose: 2 puff Documented by: Multivitamins (Thera) 1 each PO DAILY [facility] Last Admin: 01/19/20 09:09 Dose: 1 each Documented by: Ondansetron HCl (Zofran Odt) 4 mg PO Q6H PRN PRN Reason: nausea, able to take PO Last Admin: 01/13/20 15:52 Dose: 4 mg Documented by: Ondansetron HCl (Zofran) 4 mg IVPUSH Q6H PRN PRN Reason: Nausea/Vomiting Prednisone (Prednisone) 25 mg PO DAILY@0800 [facility] Last Admin: 01/19/20 09:09 Dose: 25 mg Documented by: Sodium Chloride (Saline Flush) 10 ml FLUSH ASDIRECTED PRN PRN Reason: Keep Vein Open Last Admin: 01/15/20 16:06 Dose: 10 ml Documented by: Zolpidem Tartrate (Ambien) 5 mg PO BEDTIME PRN PRN Reason: Sleep Discontinued Medications Dexamethasone (Dexamethasone) 6 mg PO DAILY [facility] Stop: 01/21/20 09:01 Enoxaparin Sodium (Lovenox) 40 mg SUBCUT DAILY [facility] Last Admin: 01/14/20 08:04 Dose: 40 mg Documented by: Remdesivir 200 mg/ Sodium (Chloride) 210 mls @ 210 mls/hr IV ONETIME ONE Stop: 01/11/20 16:59 Last Infusion: 01/11/20 18:04 Dose: Infused Documented by: Remdesivir 100 mg/ Sodium (Chloride) 230 mls @ 230 mls/hr IV Q24H [facility] Stop: 01/15/20 16:59 Last Admin: 01/15/20 16:05 Dose: 230 mls/hr Documented by: Iopamidol (Isovue-370 (76%)) 100 ml IVPUSH ONETIME ONE Stop: 01/15/20 09:06 Last Admin: 01/15/20 20:47 Dose: Not Given Documented by: Iopamidol (Isovue-370 (76%)) 100 ml IVPUSH ONETIME ONE Stop: 01/15/20 09:01 Last Admin: 01/15/20 11:26 Dose: 77 ml Documented by: Lorazepam (Ativan) 1 mg PO BEDTIME PRN PRN Reason: anxiety Sodium Chloride (Saline Flush) 30 ml IV DAILY@1700 [facility] Stop: 01/15/20 17:01 Last Admin: 01/15/20 20:52 Dose: 30 ml Documented by: - Exam Quality Assessment: Supplemental Oxygen General: Alert, Oriented HEENT: Pupils Equal, Pupils Reactive, EOMI, Mucous Membr. Moist/[place] Neck: Supple Lungs: Normal Respiratory Effort, Crackles Cardiovascular: Regular Rate, Regular Rhythm GI/Abdominal Exam: Normal Bowel Sounds, Soft, Non-Tender, No Organomegaly, No Distention, No Abnormal Bruit, No Mass, Pelvis Stable Back Exam: Normal Inspection, Full Range of Motion Extremities: Normal Inspection, Normal Range of Motion, Non-Tender, No Pedal Edema, Normal Capillary Refill Skin: Warm, Dry, Intact Neurological: No New Focal Deficit Psy/Mental Status: Alert, Normal Affect, Normal Mood Sepsis Event Note - Evaluation Sepsis Screening Result: No Definite Risk - Focused Exam Vital Signs: Vital Signs Temp Pulse Resp BP Pulse Ox 01/19/20 08:12 98.3 F 89 20 100/55 L 89 L 01/19/20 03:58 74 18 92 L - Problem List Review Problem List Initiated/Reviewed/Updated: Yes - Plan Plan:: This is a 59 Y/O F with a medical history of ulcerative colitis on chronic immunosuppression who presented with cough, fever, body aches and shortness of breath due to Covid pneumonia. Impression and Plan: Acute hypoxemic respiratory failure secondary to Covid 19 pneumonia - Continue Supplement oxygen and, taper as possible - Will likely need home oxygen ( if not able to wean off) Covid 19 pneumonia - symptoms started on December - Positive covid 19 screen on 01 January - GI and pulmonary symptoms, fever, chills, cough resolved days ago - became More sob 01/07-01/10 at home and was associated with hypoxemia 77% on RA 01/10 in clinic - LFT, Renal fx. Is good - treated with Remdesivir 01/10-01/14 (re hypoxemia, immunosuppressed) - finish the course -Continue prednisone (on it for Ulcerative colitis) Plasma : no ( far out from initial symptoms) her symptoms other than hypoxemia has been gone for days - out of Isolation 2 wks from symptom onset -evaluate for concurrent bacterial infections - low pro-calcitonin levels - hold Abx Elevated D-dimer - trending down DVT prophylaxis: SQ Lovenox to BID 3. Ulcerative colitis: will Cont prednisone - Will Hold tofacitinib Code status: Full code
[2020-01-19] MEDS ORDERED: Magnesium Citrate Solution 296 ML Bottle PO ONE (13:56)
[2020-01-19] MEDS: Acetaminophen/HYDROcodone 325-10 MG Tab PO PRN (16:33)
[2020-01-19] MEDS ORDERED: Sodium Chloride 0.9% 1,000 ML IV ONE (17:40)
[2020-01-19] MEDS ORDERED: HYDROmorphone 1 MG/ML Syringe IVPUSH ONE (17:42)
[2020-01-19] MEDS: Sodium Chloride 0.9% 10 ML Syringe FLUSH PRN (17:57)
[2020-01-19 18:51] LABS: ANION GAP 10.6 mEq/L (7-13); CHLORIDE,CL 101 mmol/L (98-107); SODIUM,NA 140 mmol/L (136-145)
[2020-01-19] MEDS: Docusate Sodium 100 MG Cap PO SCH (23:12)
[2020-01-20] MEDS: Levothyroxine 25 MCG Tab PO SCH (05:50)
[2020-01-20] MEDS: Formoterol/Mometasone 200-5 MCG 8.8 GM Inhaler IH SCH ×2 (07:39→17:52)
--- NOTE | 2020-01-20 08:11 | CT ---
PROCEDURE INFORMATION: Exam: CT Abdomen And Pelvis Without Contrast Exam date and time: 01/20/2020 7:45 AM Age: 59 years old Clinical indication: Abdominal pain; Flank; Right; Prior surgery; Surgery date: 6+ months; Surgery type: Hysterectomy; Additional info: Right flank pain, hematuria. Renal stones? TECHNIQUE: Imaging protocol: Computed tomography of the abdomen and pelvis without contrast. Radiation optimization: All CT scans at this facility use at least one of these dose optimization techniques: automated exposure control; mA and/or kV adjustment per patient size (includes targeted exams where dose is matched to clinical indication); or iterative reconstruction. COMPARISON: CT Abdomen Pelvis w Cont 08/24/2019 8:28 AM FINDINGS: Lungs: Bibasilar pulmonary atelectasis and consolidative densities. Liver: Mild diffuse hypoattenuation of the liver is present consistent with hepatic steatosis. Gallbladder and bile ducts: The gallbladder is surgically absent, with metallic clips in the gallbladder fossa. Pancreas: Normal. No ductal dilation. Spleen: Normal. No splenomegaly. Adrenal glands: Normal. No mass. Kidneys and ureters: No urinary tract calculi identified. No evidence of obstructive uropathy. Stomach and bowel: There is mildly increased fluid noted throughout the abdominal colon. Sigmoid colonic diverticula are present without evidence of diverticulitis. Appendix: The vermiform appendix is normal. Intraperitoneal space: Unremarkable. No free air. No significant fluid collection. Vasculature: Calcified phleboliths are present in the lower pelvis bilaterally. Lymph nodes: No enlarged lymph nodes. Urinary bladder: The urinary bladder is decompressed and difficult to assess. Reproductive: The uterus is status post hysterectomy. The ovaries are not identified. Bones/joints: Mild chronic T12 vertebral body compression deformity, stable. L4-L5 and L5-S1 degenerative disc disease. Diffuse osteopenia. Soft tissues: Unremarkable. IMPRESSION: 1. Increased abdominal colonic fluid consistent with any diarrheal illness. Clinical correlation is recommended. 2. Prior cholecystectomy. 3. Mild fatty infiltration of the liver. 4. Prior hysterectomy. 5. Diverticulosis. 6. Bibasilar pulmonary atelectasis and consolidative densities. Pneumonitis is difficult to exclude. Clinical correlation is recommended.
[2020-01-20] MEDS: Enoxaparin 40 MG/0.4 ML Syringe SUBCUT SCH ×2 (08:41→22:15)
[2020-01-20] MEDS: Multivitamins,Therapeutic Tab PO SCH (08:41)
[2020-01-20] MEDS: Docusate Sodium 100 MG Cap PO SCH ×2 (08:41→22:14)
[2020-01-20] MEDS: predniSONE 10 MG Tab PO SCH (08:41)
[2020-01-20] MEDS: Albuterol 6.7 GM Inhaler INH SCH ×3 (08:49→23:19)
[2020-01-20] MEDS: Ondansetron 4 MG Tab.DIS PO PRN (10:29)
--- NOTE | 2020-01-20 10:56 | PCM.PN ---
- General Info Date of Service: 01/20/20 Admission Dx/Problem (Free Text): Admission Diagnosis/Problem Admission Diagnosis/Problem Pneumonia ( secondary to COVID-19) Subjective Update: Pt was seen this morning. She is doing okay. She is still requiring 6 L via nasal cannula. She looks generally weak. Otherwise she denies any complaints. Functional Status: Reports: Pain Controlled - Review of Systems General: Reports: No Symptoms HEENT: Reports: No Symptoms Pulmonary: Reports: No Symptoms Cardiovascular: Reports: No Symptoms Gastrointestinal: Reports: No Symptoms Genitourinary: Reports: No Symptoms Musculoskeletal: Reports: No Symptoms Skin: Reports: No Symptoms Neurological: Reports: No Symptoms Psychiatric: Reports: No Symptoms - Patient Data Vitals - Most Recent: Last Vital Signs Temp 98.8 F 01/20/20 07:43 Pulse 86 01/20/20 07:43 Resp 18 01/20/20 07:43 BP 97/56 L 01/20/20 07:43 Pulse Ox 93 L 01/20/20 07:43 Weight - Most Recent: 220 lb I&O - Last 24 Hours: Intake & Output 01/19/20 01/20/20 01/20/20 22:59 06:59 14:59 Intake Total 900 300 120 Output Total 75 Balance 825 300 120 Lab Results Last 24 Hours: Laboratory Results - last 24 hr 01/19/20 01/19/20 01/19/20 Range/Units 18:20 18:20 19:20 WBC 6.4 (5.0-10.0) 10^3/uL RBC 4.46 (4.2-5.4) 10^6/uL Hgb 13.0 (12.0-16.0) g/dL Hct 39.9 (37.0-47.0) % MCV 89.5 (80-100) fL MCH 29.1 (27.0-34.0) pg MCHC 32.6 L (33.0-35.0) g/dL Plt Count 373 (150-450) 10^3/uL Sodium 140 (136-145) mmol/L Potassium 3.6 (3.5-5.1) mmol/L Chloride 101 (98-107) mmol/L Carbon Dioxide 32 (21-32) mmol/L Anion Gap 10.6 (7-13) mEq/L BUN 17 (7-18) mg/dL Creatinine 0.94 (0.55-1.02) mg/dL Est Cr Clr Drug Dosing 57.02 mL/min Estimated GFR (MDRD) > 60 Glucose 145 H (74-99) mg/dL Calcium 9.4 (8.5-10.1) mg/dL Urine Color Sherin (YELLOW) Urine Appearance Cloudy (CLEAR) Urine pH 7.0 (5.0-9.0) Ur Specific [place] 1.020 (1.005-1.030) Urine Protein 30 H (NEGATIVE) Urine Glucose (UA) Negative (NEGATIVE) Urine Ketones Trace H (NEGATIVE) Urine Occult Blood Large H (NEGATIVE) Urine Nitrite Negative (NEGATIVE) Urine Bilirubin Negative (NEGATIVE) Urine Urobilinogen 0.2 (0.2-1.0) mg/dL Ur Leukocyte Esterase Negative (NEGATIVE) Urine RBC >100 H /HPF Urine WBC 0-5 (0-5/HPF) /HPF Ur Epithelial Cells Occasional (NOT SEEN) /HPF Amorphous Sediment Few (NOT SEEN) /HPF Urine Bacteria Moderate H (0-FEW/HPF) /HPF Urine Mucus Moderate H (NOT SEEN) /LPF Med Orders - Current: Current Medications Acetaminophen (Tylenol) 650 mg PO Q4H PRN PRN Reason: Pain (Mild 1-3)/fever Last Admin: 01/13/20 09:23 Dose: 650 mg Documented by: Hydrocodone Bitart/Acetaminophen ([place] 325-10 Mg) 1 tab PO Q4H PRN PRN Reason: Pain (moderate 4-6) Last Admin: 01/19/20 16:33 Dose: 1 tab Documented by: Albuterol (Proventil Hfa) 0 gm INH Q4HR PRN PRN Reason: Wheezing Last Admin: 01/15/20 06:16 Dose: 2 puff Documented by: Albuterol (Proventil Hfa) 0 gm INH TID JCARLOS Last Admin: 01/20/20 08:49 Dose: 2 puff Documented by: Benzocaine/Menthol (Cepacol Sore Throat) 1 lozenge MUCMEM Q6H PRN PRN Reason: cough, sore throat Calcium Carbonate (Calcium Carbonate/Vitamin D 1250 Mg-200 Unit) 1 tab PO BID@1200,2100 JCARLOS Last Admin: 01/19/20 23:15 Dose: 1 tab Documented by: Docusate Sodium (Colace) 100 mg PO BID [facility] Last Admin: 01/20/20 08:41 Dose: 100 mg Documented by: Enoxaparin Sodium (Lovenox) 40 mg SUBCUT BID [facility] Last Admin: 01/20/20 08:41 Dose: 40 mg Documented by: Guaifenesin/Phenylephrine HCl (Robitussin Dm) 10 ml PO Q6H PRN PRN Reason: Cough Last Admin: 01/19/20 06:04 Dose: 10 ml Documented by: Levothyroxine Sodium (Levothyroxine) 25 mcg PO ACBREAKFAST [facility] Last Admin: 01/20/20 05:50 Dose: 25 mcg Documented by: Lorazepam (Ativan) 1 mg PO Q6HR PRN PRN Reason: anxiety Last Admin: 01/19/20 14:14 Dose: 1 mg Documented by: Mometasone Furoate/Formoterol Fumar (Dulera 200-5 Mcg) 2 puff IH BIDRT [facility] Last Admin: 01/20/20 07:39 Dose: 2 puff Documented by: Multivitamins (Thera) 1 each PO DAILY [facility] Last Admin: 01/20/20 08:41 Dose: 1 each Documented by: Ondansetron HCl (Zofran Odt) 4 mg PO Q6H PRN PRN Reason: nausea, able to take PO Last Admin: 01/20/20 10:29 Dose: 4 mg Documented by: Ondansetron HCl (Zofran) 4 mg IVPUSH Q6H PRN PRN Reason: Nausea/Vomiting Prednisone (Prednisone) 25 mg PO DAILY@0800 [facility] Last Admin: 01/20/20 08:41 Dose: 25 mg Documented by: Sodium Chloride (Saline Flush) 10 ml FLUSH ASDIRECTED PRN PRN Reason: Keep Vein Open Last Admin: 01/19/20 17:57 Dose: 10 ml Documented by: Zolpidem Tartrate (Ambien) 5 mg PO BEDTIME PRN PRN Reason: Sleep Discontinued Medications Dexamethasone (Dexamethasone) 6 mg PO DAILY [facility] Stop: 01/21/20 09:01 Enoxaparin Sodium (Lovenox) 40 mg SUBCUT DAILY [facility] Last Admin: 01/14/20 08:04 Dose: 40 mg Documented by: Hydromorphone HCl (Dilaudid) 1 mg IVPUSH ONETIME ONE Stop: 01/19/20 17:43 Last Admin: 01/19/20 17:57 Dose: 1 mg Documented by: Remdesivir 200 mg/ Sodium (Chloride) 210 mls @ 210 mls/hr IV ONETIME ONE Stop: 01/11/20 16:59 Last Infusion: 01/11/20 18:04 Dose: Infused Documented by: Remdesivir 100 mg/ Sodium (Chloride) 230 mls @ 230 mls/hr IV Q24H JCARLOS Stop: 01/15/20 16:59 Last Admin: 01/15/20 16:05 Dose: 230 mls/hr Documented by: Sodium Chloride (Normal Saline) 1,000 mls @ 1,000 mls/hr IV .BOLUS ONE Stop: 01/19/20 18:39 Last Admin: 01/19/20 17:56 Dose: 1,000 mls/hr Documented by: Iopamidol (Isovue-370 (76%)) 100 ml IVPUSH ONETIME ONE Stop: 01/15/20 09:06 Last Admin: 01/15/20 20:47 Dose: Not Given Documented by: Iopamidol (Isovue-370 (76%)) 100 ml IVPUSH ONETIME ONE Stop: 01/15/20 09:01 Last Admin: 01/15/20 11:26 Dose: 77 ml Documented by: Lorazepam (Ativan) 1 mg PO BEDTIME PRN PRN Reason: anxiety Magnesium Citrate (Citrate Of Magnesia) 296 ml PO ONETIME ONE Stop: 01/19/20 13:57 Last Admin: 01/19/20 14:10 Dose: 296 ml Documented by: Sodium Chloride (Saline Flush) 30 ml IV DAILY@1700 [facility] Stop: 01/15/20 17:01 Last Admin: 01/15/20 20:52 Dose: 30 ml Documented by: - Exam Quality Assessment: Supplemental Oxygen, DVT Prophylaxis General: Alert, Oriented HEENT: Pupils Equal, Pupils Reactive, EOMI, Mucous Membr. Moist/[place] Neck: Supple Lungs: Clear to Auscultation, Normal Respiratory Effort Cardiovascular: Regular Rate, Regular Rhythm GI/Abdominal Exam: Normal Bowel Sounds, Soft, Non-Tender, No Organomegaly, No Distention, No Abnormal Bruit, No Mass, Pelvis Stable (Female) Exam: Normal External Exam, Normal Speculum Exam, Normal Bimanual Exam Back Exam: Normal Inspection, Full Range of Motion Extremities: Normal Inspection, Normal Range of Motion, Non-Tender, No Pedal Edema, Normal Capillary Refill Skin: Warm, Dry, Intact Wound/Incisions: Healing Well Neurological: No New Focal Deficit Psy/Mental Status: Alert, Normal Affect, Normal Mood Sepsis Event Note - Evaluation Sepsis Screening Result: No Definite Risk - Focused Exam Vital Signs: Vital Signs Temp Pulse Resp BP BP Pulse Ox 01/20/20 07:43 98.8 F 86 18 97/56 L 93 L 01/20/20 04:55 97.1 F 73 20 116/68 92 L 01/19/20 23:00 98 F 67 20 117/64 91 L - Problem List Review Problem List Initiated/Reviewed/Updated: Yes - Plan Plan:: This is a 59 Y/O F with a medical history of ulcerative colitis on chronic immunosuppression who presented with cough, fever, body aches and shortness of breath due to Covid pneumonia. Impression and Plan: Acute hypoxemic respiratory failure secondary to Covid 19 pneumonia - Continue Supplement oxygen and, taper as possible - Will likely need home oxygen ( if not able to wean off) Covid 19 pneumonia - symptoms started on December - Positive covid 19 screen on 01 January - GI and pulmonary symptoms, fever, chills, cough resolved days ago - became More sob 01/07-01/10 at home and was associated with hypoxemia 77% on RA 01/10 in clinic - LFT, Renal fx. Is good - treated with Remdesivir 01/10-01/14 (re hypoxemia, immunosuppressed) - finish the course -Continue prednisone (on it for Ulcerative colitis) Plasma : no ( far out from initial symptoms) her symptoms other than hypoxemia has been gone for days - out of Isolation 2 wks from symptom onset -evaluate for concurrent bacterial infections - low pro-calcitonin levels - hold Abx Elevated D-dimer - trending down DVT prophylaxis: SQ Lovenox to BID 3. Ulcerative colitis: will Cont prednisone - Will Hold tofacitinib Code status: Full code
[2020-01-20] MEDS: Calcium Carbonate/Vitamin D3 1250 MG-200 Unit Tab PO SCH ×2 (13:08→22:12)
[2020-01-20] MEDS: Furosemide 40 MG/4 ML VIAL IVPUSH SCH ×2 (14:01→22:38)
[2020-01-20] MEDS: Acetaminophen/HYDROcodone 325-10 MG Tab PO PRN (16:26)
[2020-01-20] MEDS: LORazepam 1 MG Tab PO PRN (22:12)
[2020-01-20] MEDS: Acetaminophen 325 MG Tab PO PRN (22:13)
[2020-01-21] MEDS: Levothyroxine 25 MCG Tab PO SCH (06:25)
[2020-01-21] MEDS ORDERED: Furosemide 40 MG/4 ML VIAL IVPUSH SCH (08:00)
[2020-01-21] MEDS: Enoxaparin 40 MG/0.4 ML Syringe SUBCUT SCH (08:35)
[2020-01-21] MEDS: Docusate Sodium 100 MG Cap PO SCH (08:35)
[2020-01-21] MEDS: Multivitamins,Therapeutic Tab PO SCH (08:35)
[2020-01-21] MEDS: predniSONE 10 MG Tab PO SCH (08:35)
[2020-01-21] MEDS: Formoterol/Mometasone 200-5 MCG 8.8 GM Inhaler IH SCH (08:47)
[2020-01-21] MEDS: Albuterol 6.7 GM Inhaler INH SCH (08:47)
--- NOTE | 2020-01-21 11:22 | PCM.DCSUM1 ---
Discharge Summary - Hospital Course Free Text/Narrative:: This is a 59 Y/O F with a medical history of ulcerative colitis on chronic immunosuppression who presented with cough, fever, body aches and shortness of breath due to Covid pneumonia. Patient was significantly hypoxic requiring high supplemental oxygen. She received convalescent plasma and remdesivir. Patient was started on steroid. Her overall condition improved however she was unable to be weaned off oxygen. Physical therapy did work with patient. Patient was discharged home with home oxygen. She will follow-up with PCP. Diagnosis: Stroke: No - Discharge Data Discharge Date: 01/21/20 Discharge Disposition: Home, Self-Care 01 Condition: Good - Referral to Home Health Primary Care Physician: Danielle Hutchinson MD - Patient Instructions Diet: Heart Healthy Diet Activity: As Tolerated Showering/Bathing: May Shower Notify Provider of: Fever, Increased Pain, Swelling and Redness, Nausea and/or Vomiting - Discharge Plan *PRESCRIPTION DRUG MONITORING PROGRAM REVIEWED*: Not Applicable *COPY OF PRESCRIPTION DRUG MONITORING REPORT IN PATIENT DEQUAN: Not Applicable Prescriptions/Med Rec: Aspirin 325 mg PO DAILY #28 tab Furosemide [Lasix] 40 mg PO DAILY #30 tab Albuterol [Proventil HFA] 0 gm INH TID 30 Days #1 inhaler Dextromethorphan/guaiFENesin [Robitussin DM] 10 ml PO Q6H PRN #1 bottle PRN Reason: Cough Home Medications: Home Meds Acetaminophen [Tylenol Extra Strength] 1 tab PO Q6HR PRN 03/24/15 [History] Levothyroxine 25 mcg PO ACBREAKFAST 03/24/15 [History] Calcium Carbonate/Vitamin D3 [Calcium 600 + Vit D Tablet] 1 tab PO BID 06/26/19 [History] Multivitamin [Multivitamins] 1 tab PO DAILY 06/26/19 [History] Tofacitinib Citrate [Xeljanz Xr] 11 mg PO DAILY 06/26/19 [History] Turmeric Root Extract [Turmeric] 1,500 mg PO BID 06/26/19 [History] LORazepam [Ativan] 1 mg PO BEDTIME PRN 01/11/20 [History] predniSONE [Prednisone] 25 mg PO DAILY 01/11/20 [History] Albuterol [Proventil HFA] 0 gm INH TID 30 Days #1 inhaler 01/21/20 [Rx] Aspirin 325 mg PO DAILY #28 tab 01/21/20 [Rx] Dextromethorphan/guaiFENesin [Robitussin DM] 10 ml PO Q6H PRN #1 bottle 01/21/20 [Rx] Furosemide [Lasix] 40 mg PO DAILY #30 tab 01/21/20 [Rx] Oxygen Therapy Mode: Nasal Cannula Patient Handouts: COVID-19 Frequently Asked Questions, Home Oxygen Use, Adult, COVID-19: How to Protect Yourself and Others - CDC, Infection Prevention in the Home, Oximetry, Prevent the Spread of COVID-19 if You Are Sick - [facility] Referrals: Zac Hutchinson MD [Primary Care Provider] - - Discharge Summary/Plan Comment DC Time >30 min.: Yes - General Info Date of Service: 01/21/20 Admission Dx/Problem (Free Text: Admission Diagnosis/Problem Admission Diagnosis/Problem Pneumonia ( secondary to COVID-19) Subjective Update: Patient doing okay today. She has no new complaint. She requests to be discharged today. Says she is feeling okay. Functional Status: Reports: Pain Controlled - Review of Systems General: Reports: No Symptoms HEENT: Reports: No Symptoms Pulmonary: Reports: No Symptoms Cardiovascular: Reports: No Symptoms Gastrointestinal: Reports: No Symptoms Genitourinary: Reports: No Symptoms Musculoskeletal: Reports: No Symptoms Skin: Reports: No Symptoms Neurological: Reports: No Symptoms Psychiatric: Reports: No Symptoms - Patient Data Vitals - Most Recent: Last Vital Signs Temp 97.5 F 01/21/20 07:46 Pulse 93 01/21/20 07:46 Resp 20 01/21/20 07:46 BP 96/65 01/21/20 07:46 Pulse Ox 95 01/21/20 07:46 Weight - Most Recent: 220 lb I&O - Last 24 hours: Intake & Output 01/20/20 01/21/20 01/21/20 22:59 06:59 14:59 Intake Total 500 320 200 Balance 500 320 200 SARAH Results - Last 24 hrs: Microbiology 01/19/20 19:20 Urine Culture - Final Urine, Clean Catch MIXED DANIELA SUGGESTIVE OF CONTAMINATION. Med Orders - Current: Current Medications Acetaminophen (Tylenol) 650 mg PO Q4H PRN PRN Reason: Pain (Mild 1-3)/fever Last Admin: 01/20/20 22:13 Dose: 650 mg Documented by: Hydrocodone Bitart/Acetaminophen (Hutchinson 325-10 Mg) 1 tab PO Q4H PRN PRN Reason: Pain (moderate 4-6) Last Admin: 01/20/20 16:26 Dose: 1 tab Documented by: Albuterol (Proventil Hfa) 0 gm INH Q4HR PRN PRN Reason: Wheezing Last Admin: 01/15/20 06:16 Dose: 2 puff Documented by: Albuterol (Proventil Hfa) 0 gm INH TID [facility] Last Admin: 01/21/20 08:47 Dose: 2 puff Documented by: Benzocaine/Menthol (Cepacol Sore Throat) 1 lozenge MUCMEM Q6H PRN PRN Reason: cough, sore throat Calcium Carbonate (Calcium Carbonate/Vitamin D 1250 Mg-200 Unit) 1 tab PO BID@1200,2100 [facility] Last Admin: 01/20/20 22:12 Dose: 1 tab Documented by: Docusate Sodium (Colace) 100 mg PO BID [facility] Last Admin: 01/21/20 08:35 Dose: Not Given Documented by: Enoxaparin Sodium (Lovenox) 40 mg SUBCUT BID [facility] Last Admin: 01/21/20 08:35 Dose: 40 mg Documented by: Furosemide (Lasix) 40 mg IVPUSH 0800,1400 [facility] Last Admin: 01/21/20 08:34 Dose: 40 mg Documented by: Guaifenesin/Phenylephrine HCl (Robitussin Dm) 10 ml PO Q6H PRN PRN Reason: Cough Last Admin: 01/19/20 06:04 Dose: 10 ml Documented by: Levothyroxine Sodium (Levothyroxine) 25 mcg PO ACBREAKFAST [facility] Last Admin: 01/21/20 06:25 Dose: 25 mcg Documented by: Lorazepam (Ativan) 1 mg PO Q6HR PRN PRN Reason: anxiety Last Admin: 01/20/20 22:12 Dose: 1 mg Documented by: Mometasone Furoate/Formoterol Fumar (Dulera 200-5 Mcg) 2 puff IH BIDRT [facility] Last Admin: 01/21/20 08:47 Dose: 2 puff Documented by: Multivitamins (Thera) 1 each PO DAILY [facility] Last Admin: 01/21/20 08:35 Dose: 1 each Documented by: Ondansetron HCl (Zofran Odt) 4 mg PO Q6H PRN PRN Reason: nausea, able to take PO Last Admin: 01/20/20 10:29 Dose: 4 mg Documented by: Ondansetron HCl (Zofran) 4 mg IVPUSH Q6H PRN PRN Reason: Nausea/Vomiting Prednisone (Prednisone) 25 mg PO DAILY@0800 [facility] Last Admin: 01/21/20 08:35 Dose: 25 mg Documented by: Sodium Chloride (Saline Flush) 10 ml FLUSH ASDIRECTED PRN PRN Reason: Keep Vein Open Last Admin: 01/19/20 17:57 Dose: 10 ml Documented by: Zolpidem Tartrate (Ambien) 5 mg PO BEDTIME PRN PRN Reason: Sleep Discontinued Medications Dexamethasone (Dexamethasone) 6 mg PO DAILY [facility] Stop: 01/21/20 09:01 Enoxaparin Sodium (Lovenox) 40 mg SUBCUT DAILY [facility] Last Admin: 01/14/20 08:04 Dose: 40 mg Documented by: Furosemide (Lasix) 40 mg IVPUSH BID [facility] Last Admin: 01/20/20 22:38 Dose: Not Given Documented by: Hydromorphone HCl (Dilaudid) 1 mg IVPUSH ONETIME ONE Stop: 01/19/20 17:43 Last Admin: 01/19/20 17:57 Dose: 1 mg Documented by: Remdesivir 200 mg/ Sodium (Chloride) 210 mls @ 210 mls/hr IV ONETIME ONE Stop: 01/11/20 16:59 Last Infusion: 01/11/20 18:04 Dose: Infused Documented by: Remdesivir 100 mg/ Sodium (Chloride) 230 mls @ 230 mls/hr IV Q24H [facility] Stop: 01/15/20 16:59 Last Admin: 01/15/20 16:05 Dose: 230 mls/hr Documented by: Sodium Chloride (Normal Saline) 1,000 mls @ 1,000 mls/hr IV .BOLUS ONE Stop: 01/19/20 18:39 Last Infusion: 01/20/20 11:10 Dose: Infused Documented by: Iopamidol (Isovue-370 (76%)) 100 ml IVPUSH ONETIME ONE Stop: 01/15/20 09:06 Last Admin: 01/15/20 20:47 Dose: Not Given Documented by: Iopamidol (Isovue-370 (76%)) 100 ml IVPUSH ONETIME ONE Stop: 01/15/20 09:01 Last Admin: 01/15/20 11:26 Dose: 77 ml Documented by: Lorazepam (Ativan) 1 mg PO BEDTIME PRN PRN Reason: anxiety Magnesium Citrate (Citrate Of Magnesia) 296 ml PO ONETIME ONE Stop: 01/19/20 13:57 Last Admin: 01/19/20 14:10 Dose: 296 ml Documented by: Sodium Chloride (Saline Flush) 30 ml IV DAILY@1700 JCARLOS Stop: 01/15/20 17:01 Last Admin: 01/15/20 20:52 Dose: 30 ml Documented by: - Exam Quality Assessment: Reports: Supplemental Oxygen General: Reports: Alert, Oriented HEENT: Reports: Pupils Equal, Pupils Reactive, EOMI, Mucous Membr. Moist/[place] Neck: Reports: Supple Lungs: Reports: Clear to Auscultation, Normal Respiratory Effort Cardiovascular: Reports: Regular Rate, Regular Rhythm GI/Abdominal Exam: Normal Bowel Sounds, Soft, Non-Tender, No Organomegaly, No Distention, No Abnormal Bruit, No Mass, Pelvis Stable (Female) Exam: Normal External Exam, Normal Speculum Exam, Normal Bimanual Exam Rectal (Female) Exam: Normal Exam, Normal Rectal Tone Back Exam: Reports: Normal Inspection, Full Range of Motion Extremities: Normal Inspection, Normal Range of Motion, Non-Tender, No Pedal Edema, Normal Capillary Refill Skin: Reports: Warm, Dry, Intact Wound/Incisions: Reports: Healing Well Neurological: Reports: No New Focal Deficit Psy/Mental Status: Reports: Alert, Normal Affect, Normal Mood
[2020-01-21] MEDS: Calcium Carbonate/Vitamin D3 1250 MG-200 Unit Tab PO SCH (12:17)
[2020-01-21 14:16] VITALS: BP 95/54; PULSE 88
== END 2020-01-21 14:10 | disposition home or self-care (01) | DRG 137 ==
LOC: DL.MS 12:39
PROVIDERS: ADMIT Internal Medicine; ATTEND Student in an Organized Health Care Education/Training Program
PROC: XW033E5 Introduction of Remdesivir Anti-infective into Peripheral Vein, Percutaneous Approach, New Technology Group 5 (ICD-10-PCS; principal; 2020-01-11)
PROC: 5A0935A Assistance with Respiratory Ventilation, Less than 24 Consecutive Hours, High Flow/Velocity Cannula (ICD-10-PCS; 2020-01-16)
DX: U07.1 COVID-19 (principal); J96.01 Acute respiratory failure with hypoxia; J12.89 Other viral pneumonia; K51.90 Ulcerative colitis, unspecified, without complications; D84.9 Immunodeficiency, unspecified; J32.9 Chronic sinusitis, unspecified; E66.9 Obesity, unspecified; Z96.653 Presence of artificial knee joint, bilateral; Z88.8 Allergy status to other drugs, medicaments and biological substances; Z79.890 Hormone replacement therapy; Z79.52 Long term (current) use of systemic steroids; Z79.899 Other long term (current) drug therapy; Z90.49 Acquired absence of other specified parts of digestive tract; Z99.81 Dependence on supplemental oxygen; Z68.37 Body mass index [BMI] 37.0-37.9, adult; Z28.82 Immunization not carried out because of caregiver refusal
CPT/HCPCS: 36415; 71045; 71046; 71260; 74176; 80048; 80076; 81001; 82728; 83605; 83615; 84145; 85025; 85027; 85379; 85610; 86140; 87040; 87086; 94762; A9270-GY; J1170; J1650; J1940; J7030; J7050; J7512; Q9967

== ENCOUNTER 2020-06-27 06:50 | Day surgery (SDC) | payer BC ==
[2020-06-27] MEDS ORDERED: Propofol 200 MG/20 ML SDV IV ONE (06:51)
[2020-06-27 10:10] VITALS: BP 110/73; PULSE 70
--- NOTE | 2020-06-27 11:12 | OR ---
DATE: 06/27/2020 PROCEDURE: Total colonoscopy, NBI, and multiple pinch biopsies. INSTRUMENT USED: [id number]-H190DL Olympus video colonoscope. PREMEDICATIONS: Provided by Anesthesiology Services. INDICATION: The patient with known ulcerative colitis on therapy with recent onset rectal bleeding and diarrhea, persistent in nature and unexplained. Colonoscopic examination is done for detection of any polypoid lesions and removal, endoscopic assessment of ulcerative colitis, endoscopic hemostasis therapy if needed. DESCRIPTION OF PROCEDURE: Initial rectal exam was unremarkable. Rigid anoscopy showed evidence of ulcerative colitis, rectal area, Zhou score 3. The scope was passed with ease. Photographs were taken of the rectum. The scope was passed up to the ileocecal area. Photographs were taken of the normal-appearing cecum, identified by double-bulged ileocecal folds. No bleeding was noted from any of the visualized areas at the commencement of the examination. The bowel preparation was found to be adequate, [place] scale 2 in all areas, total score 6. No stricture. No vascular ectasia. No large isolated ulcerations seen. No polyp or tumor mass identified. Few diverticula were noted in the distal left colon. The mucosa visualized showed Zhou score 0 in all the areas except for sigmoid colon, Zhou score 1 and rectum Zhou score 3. Probing the proximal sides of folds and flexures using adequate distention and clearing of the stool material, withdrawal of the scope was made. Multiple pinch biopsies were taken from the cecum and transverse colon, mid descending colon, sigmoid and rectum and sent for histopathology. No bleeding was noted from any of the visualized areas at the completion of examination. IMPRESSION: 1. Diverticulosis. 2. Ulcerative colitis. The patient tolerated the procedure well. [facility] /[id number]
== END 2020-06-27 10:17 | disposition home or self-care (01) ==
LOC: DL.ENDO 06:50
PROVIDERS: ATTEND Internal Medicine Gastroenterology
DX: K51.20 Ulcerative (chronic) proctitis without complications (principal); K51.90 Ulcerative colitis, unspecified, without complications; K57.30 Diverticulosis of large intestine without perforation or abscess without bleeding; K63.89 Other specified diseases of intestine; E03.9 Hypothyroidism, unspecified; E66.01 Morbid (severe) obesity due to excess calories; Z79.899 Other long term (current) drug therapy; Z86.16 Personal history of COVID-19; Z88.1 Allergy status to other antibiotic agents; Z68.41 Body mass index [BMI] 40.0-44.9, adult
CPT/HCPCS: 45380; J2704; J7042

== ENCOUNTER 2021-08-21 06:48 | Day surgery (SDC) | payer BC ==
[~2021-08-21 06:48] MED LIST changes: -Dextrose 5%-0.45% NaCl 1,000 ML IV SCH
[2021-08-21] MEDS ORDERED: Propofol 200 MG/20 ML SDV IV ONE (06:49)
[2021-08-21] MEDS ORDERED: Dextrose 5%-0.45% NaCl 1,000 ML IV SCH (07:15)
[2021-08-21] MEDS ORDERED: Lactated Ringers 1,000 ML IV SCH (07:30)
[2021-08-21] MEDS ORDERED: Sodium Chloride 0.9% 10 ML Syringe FLUSH SCH (09:00)
[2021-08-21 10:55] VITALS: BP 106/67; PULSE 87
== END 2021-08-21 10:35 | disposition home or self-care (01) ==
LOC: DL.ENDO 06:48
PROVIDERS: ATTEND Internal Medicine Gastroenterology
DX: K51.90 Ulcerative colitis, unspecified, without complications (principal); F41.9 Anxiety disorder, unspecified; F32.A Depression, unspecified; E66.01 Morbid (severe) obesity due to excess calories; Z68.38 Body mass index [BMI] 38.0-38.9, adult
CPT/HCPCS: 00811; 45380; J7120; J2704; J7042

== ENCOUNTER 2023-08-13 06:24 | Day surgery (SDC) | payer BC ==
[2023-08-13] MEDS: Dextrose 5%-0.45% NaCl 1,000 ML IV SCH (06:47)
[2023-08-13] MEDS ORDERED: Midazolam 1 MG/ML 2 ML SDV ONE (07:03)
[2023-08-13] MEDS ORDERED: fentaNYL 100 MCG/2 ML SDV ONE (07:04)
[2023-08-13] MEDS: fentaNYL 100 MCG/2 ML SDV IV ONE ×6 (07:07→07:25)
[2023-08-13] MEDS: Midazolam 1 MG/ML 2 ML SDV IV ONE ×8 (07:08→07:28)
[2023-08-13 09:18] VITALS: BP 105/72; PULSE 67
== END 2023-08-13 08:57 | disposition home or self-care (01) ==
LOC: DL.ENDO 06:24
PROVIDERS: ATTEND Internal Medicine Gastroenterology
DX: K51.90 Ulcerative colitis, unspecified, without complications (principal); K57.30 Diverticulosis of large intestine without perforation or abscess without bleeding; E66.09 Other obesity due to excess calories; Z68.33 Body mass index [BMI] 33.0-33.9, adult
CPT/HCPCS: 45380; J2250; J3010; J7042

== ENCOUNTER 2024-09-17 05:52 | Day surgery (SDC) | payer BC ==
[2024-09-17] MEDS: Lactated Ringers 1,000 ML IV SCH (06:20)
[2024-09-17] MEDS ORDERED: Propofol 200 MG/20 ML SDV ONE (07:34)
[2024-09-17 08:12] VITALS: BP 99/65; PULSE 66
== END 2024-09-17 08:08 | disposition home or self-care (01) ==
LOC: DL.ENDO 05:52
PROVIDERS: ATTEND Internal Medicine Gastroenterology
DX: K63.89 Other specified diseases of intestine (principal)
CPT/HCPCS: 45380; J7120